=== PATIENT | female | born 1970 | race Caucasian/White ===

== ENCOUNTER 2016-08-03 20:22 | Emergency (ER) | payer BC ==
[2016-08-03] MEDS ORDERED: Acetaminophen 325 MG Tab PO ONE (20:36)
[2016-08-03 20:38] VITALS: BP 157/98
--- NOTE | 2016-08-03 20:40 | EDM.PDOC ---
ED HPI Trauma - General Chief Complaint: Lower Extremity Injury/Pain Stated Complaint: INJURED LEFT ANKLE Time Seen by Provider: 08/03/16 20:34 Source: Reports: Patient History Limitations: Reports: No limitations - History of Present Illness INITIAL COMMENTS - FREE TEXT/NARRATIVE: The patient presents with left ankle pain. She was putting clothes away and she inverted her left ankle and fell. She has no other injuries. She does have a headache but that was not from the fall. She could not walk on it right away. Occurred When: just prior to arrival Occurred Where: home Method of Injury: fall Severity: severe Pain/Injury Location: Reports: upper extremity, left (Ankle) Consciousness: Reports: no loss of consciousness Associated Symptoms: Reports: no other symptoms Allergies/ADRs: Allergies levofloxacin [From Levaquin] Allergy (Verified 08/03/16 20:33) Hallucinations Penicillins Allergy (Verified 08/03/16 20:33) Hives Review of Systems - Review of Systems Review Of Systems: See Below Constitutional: Reports: no symptoms Eyes: Reports: no symptoms Ears: Reports: no symptoms Nose: Reports: no symptoms Mouth/Throat: Reports: no symptoms Respiratory: Reports: No Symptoms Cardiovascular: Reports: no symptoms GI/Abdominal: Reports: No symptoms Genitourinary: Reports: no symptoms Musculoskeletal: Reports: other (Left ankle pain) Trauma Exam - Physical Exam Exam: See Below Exam Limited By: No limitations General Appearance: Reports: alert, no apparent distress Head: Reports: atraumatic, normocephalic Respiratory Exam: Reports: no respiratory distress Extremities: Reports: other (Pain upon palpation to the medial and lateral left ankle with mild edema to the lateral ankle. Good sensation and pulses distally. ) Course - Vital Signs Last Recorded V/S: Last Vital Signs Temp 98.7 F 08/03/16 20:33 Pulse 77 08/03/16 20:33 Resp 16 08/03/16 20:33 BP 157/98 H 08/03/16 20:33 Pulse Ox 98 08/03/16 20:33 - Orders/Labs/Meds Orders: Active Orders 24 hr Category Date Time Status Ankle Min 3V Lt [CR] Stat Exams 08/03/16 20:36 Taken Meds: Medications Discontinued Medications Generic Name Dose Route Start Last Admin Trade Name Freq PRN Reason Stop Dose Admin Acetaminophen 975 mg 08/03/16 20:36 08/03/16 20:42 Tylenol PO 08/03/16 20:37 975 mg NOW ONE Administration - Re-Assessments/Exams Free Text/Narrative Re-Assessment/Exam: 08/03/16 20:59 I gave her some tylenol for the pain. Her x-ray does not show a fracture. She has a sprain. I will give her an jennie-wrap and she has crutches. Departure - Departure Time of Disposition: 21:00 Disposition: Home, Self-Care 01 Condition: good Clinical Impression: Fall Qualifiers: Encounter type: initial encounter Qualified Code(s): W19.XXXA - Unspecified fall, initial encounter Left ankle sprain Qualifiers: Encounter type: initial encounter Involved ligament of ankle: unspecified ligament Qualified Code(s): S93.402A - Sprain of unspecified ligament of left ankle, initial encounter Referrals: Iván Lazaro MD [Primary Care Provider] - 1 Week (If not better) Forms: ED Department Discharge Additional Instructions: Ice your ankle for 15 minutes every other hour while awake for 2 days. Try to elevate your ankle above your heart as much as you can for 2 days. Take tylenol , motrin or aleve for the pain. Wear the jennie wrap for comfort. Use the crutches for a few days. Follow up with Dr Godinez if you are not better in 1 week. - My Orders Last 24 Hours: My Active Orders 08/03/16 20:36 Ankle Min 3V Lt [CR] Stat - Assessment/Plan Last 24 Hours: My Active Orders 08/03/16 20:36 Ankle Min 3V Lt [CR] Stat
--- NOTE | 2016-08-04 09:50 | CR ---
Left ankle: Four views of the left ankle were obtained. Comparison: No previous study. Soft tissue swelling is identified. Plantar spur is seen. Small spur noted at the attachment of the Achilles tendon to the calcaneus. Minimal val of bone noted off the medial malleolus which is felt to be incidental. No acute fracture or other bony abnormality is seen. Impression: 1. Soft tissue swelling and other incidental findings. 2. No acute bony abnormality identified on left ankle exam. Diagnostic code #2
== END 2016-08-03 21:10 | disposition home or self-care (01) ==
LOC: JD.ED 20:22
DX: S93.402A Sprain of unspecified ligament of left ankle, initial encounter (principal); W19.XXXA Unspecified fall, initial encounter; Y92.009 Unspecified place in unspecified non-institutional (private) residence as the place of occurrence of the external cause; Z88.0 Allergy status to penicillin; Z88.1 Allergy status to other antibiotic agents
CPT/HCPCS: 73610; 99283; A9270; 99282

== ENCOUNTER 2017-02-25 11:52 | Observation (INO) | payer BC ==
[2017-02-25] MEDS ORDERED: Sodium Chloride 0.9% 10 ML Syringe FLUSH PRN (12:03)
[2017-02-25] MEDS ORDERED: Sodium Chloride 0.9% 1,000 ML IV ONE ×2 (12:04→13:54)
[2017-02-25] MEDS ORDERED: Ondansetron 4 MG/2 ML SDV IVPUSH ONE (12:04)
--- NOTE | 2017-02-25 12:06 | EDM.PDOC ---
ED HPI GENERAL MEDICAL PROBLEM - General Chief Complaint: Headache Stated Complaint: Altered mental status Time Seen by Provider: 02/25/17 11:55 Source of Information: Reports: Patient, EMS, RN Notes Reviewed History Limitations: Reports: No Limitations - History of Present Illness INITIAL COMMENTS - FREE TEXT/NARRATIVE: 46 year old female presents to the ED via [facility] due to unresponsive episode at home. EMS reports that daughter called 911 because her Mom was reportedly unresponsive. She was breathing and had a pulse at time of dispatch. When EMS arrived, the patient was responsive initially but EMS reports that patient did have an "unresponsive" episode at which time they attempted to sternal rub her with no response. She was breathing with a pulse. There was no reported seizure like activity. On arrival to the ED, the patient is lethargic but alert and appropriately answers questions. She says she awoke with a severe headache around 5am this morning. She went back to sleep for a while. She says the headache started in the back of her head and now is behind her eyes. She has a history of migraines but says she hasn't had migraines in a long time. She is unsure what happened today. She reports a similar episode a couple years ago and said "they don't know what happened." She admits to drinking 1 amado last evening. She otherwise rarely drinks alcohol. She denies drug use. She feels nauseated but denies vomiting, abdominal pain or diarrhea. She denies chest pain, shortness of breath, cough. She denies neck pain or stiffness. She denies fall. She reports history of hypertension but is no longer taking medications because her BP has reportedly improved. She's had a hystorectomy. Her PCP is Dr. Godinez. Occipital Headache Pain Score (Numeric/FACES): 10 - Related Data Allergies Allergy/AdvReac Type Severity Reaction Status Date / Time levofloxacin [From Levaquin] Allergy Hallucinati Verified 02/25/17 11:53 ons Penicillins Allergy Hives Verified 02/25/17 11:53 Home Meds: Home Meds . [No Known Home Meds] 02/25/17 [History] Past Medical History Cardiovascular History: Reports: Hypertension Genitourinary History: Reports: Other (See Below) Other Genitourinary History: bladder sling [employer] History: Reports: Neurological History: Reports: Migraines Psychiatric History: Reports: Depression Endocrine/Metabolic History: Reports: Hypothyroidism - Past Surgical History HEENT Surgical History: Reports: LASIK GI Surgical History: Reports: Appendectomy Social & Family History - Tobacco Use Smoking Status *Q: Never Smoker - Caffeine Use Caffeine Use: Reports: Coffee, Energy Drinks, Soda, Tea - Recreational Drug Use Recreational Drug Use: No ED ROS GENERAL - Review of Systems Review Of Systems: See Below Constitutional: Reports: Malaise, Fatigue. Denies: Fever HEENT: Denies: Throat Pain, Vertigo, Vision Change Respiratory: Reports: No Symptoms. Denies: Shortness of Breath, Cough Cardiovascular: Reports: No Symptoms. Denies: Chest Pain, Edema, Lightheadedness, Palpitations GI/Abdominal: Reports: Nausea. Denies: Abdominal Pain, Diarrhea, Vomiting : Reports: No Symptoms. Denies: Dysuria, Flank Pain, Frequency, Urgency Neurological: Reports: Headache, Syncope (questionable ), Weakness (generalized ), Other (altered mental status, unresponsive episode ). Denies: Confusion, Numbness, Tingling - Physical Exam Exam: See Below Exam Limited By: No Limitations General Appearance: No Apparent Distress, Lethargic Eye Exam: Bilateral Eye: EOMI, Normal Inspection, PERRL Throat/Mouth: Normal Inspection, Normal Oropharynx Head Exam: Atraumatic, Normocephalic Neck: Normal Inspection, Supple, Non-Tender, Full Range of Motion, Other (no nuchal rigidity ). No: Tender Midline Respiratory/Chest: No Respiratory Distress, Lungs Clear, Normal Breath Sounds, No Accessory Muscle Use, Chest Non-Tender Cardiovascular: Normal Peripheral Pulses, Regular Rate, Rhythm, No Edema, No Murmur GI/Abdominal: Normal Bowel Sounds, Soft, Non-Tender, No Distention Neuro Exam (Abbreviated): Other (lethargic but oriented. answers questions appropriately. she is not confused. she moves all extremities and has equal strength bilaterally. No facial assymetry. PERRLA and EOMs intact. ) Back Exam: Normal Inspection, Full Range of Motion. No: CVA Tenderness (L), CVA Tenderness (R) Psychiatric: Flat Affect Skin Exam: Warm, Dry, Intact Course - Vital Signs Last Recorded V/S: Last Vital Signs Temp 97.5 F 02/25/17 12:00 Pulse 79 02/25/17 12:00 Resp 18 02/25/17 12:00 BP 177/102 H 02/25/17 12:00 Pulse Ox 96 02/25/17 12:00 - Orders/Labs/Meds Orders: Active Orders 24 hr Category Date Time Status Cardiac Monitoring [RC] . DIRECTED Care 02/25/17 12:03 Active EKG Documentation Completion [RC] ASDIRECTED Care 02/25/17 12:04 Active Peripheral IV Care [RC] . DIRECTED Care 02/25/17 12:04 Active Sodium Chloride 0.9% [Normal Saline] 1,000 ml Med 02/25/17 12:04 Active IV ONETIME Sodium Chloride 0.9% [Normal Saline] 1,000 ml Med 02/25/17 13:54 Ordered IV ONETIME Sodium Chloride 0.9% [Saline Flush] Med 02/25/17 12:03 Active 10 ml FLUSH ASDIRECTED PRN Peripheral IV Insertion Adult [OM.PC] Stat Oth 02/25/17 12:03 Ordered EKG 12 Lead [EK] Stat Ther 02/25/17 12:03 Ordered Medication Orders Sodium Chloride (Normal Saline) 1,000 mls @ 125 mls/hr IV ONETIME ONE Stop: 02/25/17 20:03 Last Admin: 02/25/17 12:12 Dose: 125 mls/hr Sodium Chloride (Normal Saline) 1,000 mls @ 999 mls/hr IV ONETIME ONE Stop: 02/25/17 14:54 Sodium Chloride (Saline Flush) 10 ml FLUSH ASDIRECTED PRN PRN Reason: Keep Vein Open Last Admin: 02/25/17 12:14 Dose: 10 ml Labs: Laboratory Tests 02/25/17 02/25/17 02/25/17 Range/Units 12:15 12:15 12:54 WBC 10.64 H (3.98-10.04) K/mm3 RBC 5.63 H (3.98-5.22) M/mm3 Hgb 15.5 (11.2-15.7) gm/L Hct 45.1 H (34.1-44.9) % MCV 80.1 (79.4-94.8) fl MCH 27.5 (25.6-32.2) pg MCHC 34.4 (32.2-35.5) g/dl RDW Std Deviation 39.8 (36.4-46.3) fL Plt Count 129 L (182-369) K/mm3 MPV 10.3 (9.4-12.3) fl Neutrophils % (Manual) 86 H (40-60) % Band Neutrophils % 0 (0-10) % Lymphocytes % (Manual) 10 L (20-40) % Atypical Lymphs % 0 % Monocytes % (Manual) 2 (2-10) % Eosinophils % (Manual) 1 (0.7-5.8) % Basophils % (Manual) 1 (0.1-1.2) Platelet Estimate Adequate Plt Morphology Comment See note RBC Morph Comment Normal Sodium (136-145) mEq/L Potassium (3.5-5.1) mEq/L Chloride (98-107) mEq/L Carbon Dioxide (21-32) mEq/L Anion Gap (5-15) BUN (7-18) mg/dL Creatinine (0.55-1.02) mg/dL Est Cr Clr Drug Dosing mL/min Estimated GFR (MDRD) (>60) mL/min BUN/Creatinine Ratio (14-18) Glucose (74-106) mg/dL Calcium (8.5-10.1) mg/dL Magnesium (1.8-2.4) mg/dl Total Bilirubin (0.2-1.0) mg/dL AST (15-37) U/L ALT (14-59) U/L Alkaline Phosphatase (46-116) U/L Total Protein (6.4-8.2) g/dl Albumin (3.4-5.0) g/dl Globulin gm/dL Albumin/Globulin Ratio (1-2) TSH 3rd Generation (0.358-3.74) uIU/mL Urine Color Light yellow (Yellow) Urine Appearance Clear (Clear) Urine pH 7.5 (5.0-8.0) Ur Specific [place] 1.020 (1.005-1.030) Urine Protein 1+ H (Negative) Urine Glucose (UA) Trace H (Negative) Urine Ketones 1+ H (Negative) Urine Occult Blood Trace-intact H (Negative) Urine Nitrite Negative (Negative) Urine Bilirubin Negative (Negative) Urine Urobilinogen 0.2 (0.2-1.0) Ur Leukocyte Esterase Negative (Negative) Urine RBC 0-5 (0-5) /hpf Urine WBC 0-5 (0-5) /hpf Ur Epithelial Cells 5-10 H (0-5) /hpf Amorphous Sediment Few H (NOT SEEN) /hpf Urine Bacteria Few (FEW) /hpf Urine Mucus Not seen (FEW) /hpf Urine Opiates Screen Negative (NEGATIVE) Ur Buprenorphine Scrn Negative (NEGATIVE) Ur Oxycodone Screen Negative (NEGATIVE) Urine Methadone Screen Negative (NEGATIVE) Ur Propoxyphene Screen Negative (NEGATIVE) Ur Barbiturates Screen Negative (NEGATIVE) Ur Tricyclics Screen Negative (NEGATIVE) Ur Phencyclidine Scrn Negative (NEGATIVE) Ur Amphetamine Screen Negative (NEGATIVE) U Methamphetamines Scrn Negative (NEGATIVE) U Benzodiazepines Scrn Negative (NEGATIVE) U Cocaine Metab Screen Negative (NEGATIVE) U Marijuana (THC) Screen Negative (NEGATIVE) Ethyl Alcohol (0.00) gm% 02/25/17 02/25/17 Range/Units 12:54 13:54 WBC (3.98-10.04) K/mm3 RBC (3.98-5.22) M/mm3 Hgb (11.2-15.7) gm/L Hct (34.1-44.9) % MCV (79.4-94.8) fl MCH (25.6-32.2) pg MCHC (32.2-35.5) g/dl RDW Std Deviation (36.4-46.3) fL Plt Count (182-369) K/mm3 MPV (9.4-12.3) fl Neutrophils % (Manual) (40-60) % Band Neutrophils % (0-10) % Lymphocytes % (Manual) (20-40) % Atypical Lymphs % % Monocytes % (Manual) (2-10) % Eosinophils % (Manual) (0.7-5.8) % Basophils % (Manual) (0.1-1.2) Platelet Estimate Plt Morphology Comment RBC Morph Comment Sodium 141 (136-145) mEq/L Potassium 2.9 L (3.5-5.1) mEq/L Chloride 103 (98-107) mEq/L Carbon Dioxide 26 (21-32) mEq/L Anion Gap 14.9 (5-15) BUN 11 (7-18) mg/dL Creatinine 0.8 (0.55-1.02) mg/dL Est Cr Clr Drug Dosing 84.01 mL/min Estimated GFR (MDRD) > 60 (>60) mL/min BUN/Creatinine Ratio 13.8 L (14-18) Glucose 166 H (74-106) mg/dL Calcium 8.9 (8.5-10.1) mg/dL Magnesium 2.1 (1.8-2.4) mg/dl Total Bilirubin 0.8 (0.2-1.0) mg/dL AST 28 (15-37) U/L ALT 36 (14-59) U/L Alkaline Phosphatase 84 (46-116) U/L Total Protein 8.1 (6.4-8.2) g/dl Albumin 4.2 (3.4-5.0) g/dl Globulin 3.9 gm/dL Albumin/Globulin Ratio 1.1 (1-2) TSH 3rd Generation 4.315 H (0.358-3.74) uIU/mL Urine Color (Yellow) Urine Appearance (Clear) Urine pH (5.0-8.0) Ur Specific [place] (1.005-1.030) Urine Protein (Negative) Urine Glucose (UA) (Negative) Urine Ketones (Negative) Urine Occult Blood (Negative) Urine Nitrite (Negative) Urine Bilirubin (Negative) Urine Urobilinogen (0.2-1.0) Ur Leukocyte Esterase (Negative) Urine RBC (0-5) /hpf Urine WBC (0-5) /hpf Ur Epithelial Cells (0-5) /hpf Amorphous Sediment (NOT SEEN) /hpf Urine Bacteria (FEW) /hpf Urine Mucus (FEW) /hpf Urine Opiates Screen (NEGATIVE) Ur Buprenorphine Scrn (NEGATIVE) Ur Oxycodone Screen (NEGATIVE) Urine Methadone Screen (NEGATIVE) Ur Propoxyphene Screen (NEGATIVE) Ur Barbiturates Screen (NEGATIVE) Ur Tricyclics Screen (NEGATIVE) Ur Phencyclidine Scrn (NEGATIVE) Ur Amphetamine Screen (NEGATIVE) U Methamphetamines Scrn (NEGATIVE) U Benzodiazepines Scrn (NEGATIVE) U Cocaine Metab Screen (NEGATIVE) U Marijuana (THC) Screen (NEGATIVE) Ethyl Alcohol 0.00 (0.00) gm% Meds: Medications Generic Name Dose Route Start Last Admin Trade Name Freq PRN Reason Stop Dose Admin Sodium Chloride 1,000 mls @ 125 mls/hr 02/25/17 12:04 02/25/17 12:12 Normal Saline IV 02/25/17 20:03 125 mls/hr ONETIME ONE Administration Sodium Chloride 1,000 mls @ 999 mls/hr 02/25/17 13:54 Normal Saline IV 02/25/17 14:54 ONETIME ONE Sodium Chloride 10 ml 02/25/17 12:03 02/25/17 12:14 Saline Flush FLUSH 10 ml ASDIRECTED PRN Administration Keep Vein Open Discontinued Medications Generic Name Dose Route Start Last Admin Trade Name Jesus PRN Reason Stop Dose Admin Hydromorphone HCl 0.5 mg 02/25/17 13:43 02/25/17 14:00 Dilaudid IVPUSH 02/25/17 13:44 0.5 mg ONETIME ONE Administration Potassium Chloride 10 meq/ 100 mls @ 100 mls/hr 02/25/17 13:44 02/25/17 14:01 Premix IV 02/25/17 14:43 100 mls/hr ONETIME ONE Administration Ondansetron HCl 4 mg 02/25/17 12:04 02/25/17 12:14 Zofran IVPUSH 02/25/17 12:05 4 mg ONETIME ONE Administration - Re-Assessments/Exams Free Text/Narrative Re-Assessment/Exam: CBC is unremarkable. CMP reveals Na 141, K 2.9, anion gap 14.9, glucose 166, kidney and liver function is normal. UA is negative for infection. UDS and ETOH are negative. Head CT obtained and read by Dr. Childs, impression: no acute intracranial abnormality. EKG reveals SR 72 bpm with LVH pattern. No acute ischemic changes. Read by Dr. Lua I reviewed the patient's PMH with her. She was able to pull up her [facility] chart and showed me her problem list. PMH includes hypothyroidism, htn, gerd, migraine headaches, mitral valve regurgitation, and "impaired glucose." The patient takes no medications. However she does admit to taking a weight loss supplements called Xyngular. I feel this may be contributing to her hypokalemia. The patient also now reports muscle cramps in her lower extremities. Her daughter is present at bedside. I asked her to describe what happened today. She said her Mom had periods of unresponsiveness. She said she was awake but would "check out." She did not stop breathing. She did not fall or completely lose consciousness. The daughter describes shaking her Mom to get her attention. The daughter says this has never happened before. 02/25/17 13:55 I suspect the patient's weakness symptoms are related to her hypokalemia. She is very weak to all extremities and is unable to get up without assistance. She has no focal neurologic deficit to indicate that this is a stroke. She is more alert at this time. She is interacting with family. Cerebellar testing is intact on repeat exam. I spoke to Dr. Davison who has accepted the patient. She will be referred for observation for hypokalemia and weakness. We did add a magnesium and TSH level. Departure - Departure Time of Disposition: 14:51 Disposition: Refer to Observation Condition: Fair Clinical Impression: Hypokalemia, Generalized weakness - Discharge Information Referrals: Iván Lazaro MD [Primary Care Provider] - Forms: ED Department Discharge - My Orders Last 24 Hours: My Active Orders 02/25/17 12:03 Cardiac Monitoring [RC] . DIRECTED Sodium Chloride 0.9% [Saline Flush] 10 ml FLUSH ASDIRECTED PRN Peripheral IV Insertion Adult [OM.PC] Stat EKG 12 Lead [EK] Stat 02/25/17 12:04 EKG Documentation Completion [RC] ASDIRECTED Peripheral IV Care [RC] . DIRECTED Sodium Chloride 0.9% [Normal Saline] 1,000 ml IV ONETIME 02/25/17 13:54 Sodium Chloride 0.9% [Normal Saline] 1,000 ml IV ONETIME - Assessment/Plan Last 24 Hours: My Active Orders 02/25/17 12:03 Cardiac Monitoring [RC] . DIRECTED Sodium Chloride 0.9% [Saline Flush] 10 ml FLUSH ASDIRECTED PRN Peripheral IV Insertion Adult [OM.PC] Stat EKG 12 Lead [EK] Stat 02/25/17 12:04 EKG Documentation Completion [RC] ASDIRECTED Peripheral IV Care [RC] . DIRECTED Sodium Chloride 0.9% [Normal Saline] 1,000 ml IV ONETIME 02/25/17 13:54 Sodium Chloride 0.9% [Normal Saline] 1,000 ml IV ONETIME
--- NOTE | 2017-02-25 12:47 | CT ---
Head CT Technique: Multiple axial sections through the brain were obtained. Intravenous contrast was not utilized. Comparison: No previous intracranial imaging. Findings: Ventricles along with basal cisterns and sulci over the convexities appear within normal limits for the patient's age. No abnormal parenchymal densities are seen. No evidence of intracranial hemorrhage. No midline shift or mass effect is seen. Bone window settings were reviewed which shows the visualized sinuses to appear clear. No acute calvarial abnormality is appreciated. Impression: 1. No acute intracranial abnormality is identified on noncontrast head CT study. Diagnostic code #1
[2017-02-25] MEDS ORDERED: HYDROmorphone 0.5 MG/0.5 ML Syringe IVPUSH ONE (13:43)
[2017-02-25] MEDS ORDERED: Potassium Chloride 10 MEQ in Premix Bag 1 BAG IV ONE (13:44)
--- NOTE | 2017-02-25 15:35 | PCM.HP ---
H&P History of Present Illness - General Date of Service: 02/25/17 Source of Information: Patient, Provider History Limitations: Reports: No Limitations - History of Present Illness Initial Comments - Free Text/Narative: 46 year old female who reportedly had transient LOC, this was associated with a headache. The patient had an alcoholic beverage before going to bed. She reports that she rarely drinks. The patient experienced nausea without vomiting ; denies drug use [employer]. There was no apparent cardiac component when another episode was reported by the EMS, the first occurrence was described by her daughter. There has been no CP, SOB, PND, orthopnea; denies /GI changes. Onset of Symptoms: Reports: Sudden Symptom Onset Date: 02/25/17 Symptom Onset Time: 05:00 Duration of Symptoms: Reports: Hour(s):, Getting Worse Location: Reports: Head, Neck, Abdomen Severity: Moderate Improves with: Reports: Medication Worsens with: Reports: None Associated Symptoms: Reports: Headaches, Loss of Appetite, Malaise, Weakness Occipital Headache Pain Score (Numeric/FACES): 10 - Related Data Allergies/Adverse Reactions: Allergies Allergy/AdvReac Type Severity Reaction Status Date / Time levofloxacin [From Levaquin] Allergy Hallucinati Verified 02/25/17 11:53 ons Penicillins Allergy Hives Verified 02/25/17 11:53 Home Medications: Home Meds FLUoxetine HCl [Prozac] 20 mg PO DAILY 02/25/17 [History] Propranolol [Inderal LA] 80 mg PO DAILY 02/25/17 [History] Topiramate 50 mg PO DAILY 02/25/17 [History] Topiramate 100 mg PO DAILY 02/25/17 [History] ZOLMitriptan [Zolmitriptan] 5 mg pe PO Q2H PRN 02/25/17 [History] Past Medical History Cardiovascular History: Reports: Hypertension Other Cardiovascular History: Had taken Redux in the past. She sees provider who routinely checks her mitral valve. 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: Neurological History: Reports: Migraines Psychiatric History: Reports: Depression Endocrine/Metabolic History: Reports: Hypothyroidism - Past Surgical History HEENT Surgical History: Reports: LASIK GI Surgical History: Reports: Appendectomy Social & Family History - Tobacco Use Smoking Status *Q: Never Smoker Second Hand Smoke Exposure: No - Caffeine Use Caffeine Use: Reports: Coffee, Energy Drinks, Soda, Tea - Alcohol Use Date of Last Drink: 02/24/17 Time of Last Drink: 00:00 - Recreational Drug Use Recreational Drug Use: No H&P Review of Systems - Review of Systems: Review Of Systems: See Below General: Reports: Malaise, Fatigue HEENT: Reports: Eye Pain, Headaches Pulmonary: Reports: No Symptoms Cardiovascular: Reports: No Symptoms Gastrointestinal: Reports: Nausea Genitourinary: Reports: No Symptoms Musculoskeletal: Reports: No Symptoms Skin: Reports: No Symptoms Psychiatric: Reports: No Symptoms Neurological: Reports: Dizziness, Headache Hematologic/Lymphatic: Reports: No Symptoms Immunologic: Reports: No Symptoms Exam - Exam Exam: See Below - Vital Signs Vital Signs: Last Vital Signs Temp 36.4 C 02/25/17 12:00 Pulse 79 02/25/17 12:00 Resp 18 02/25/17 12:00 BP 177/102 H 02/25/17 12:00 Pulse Ox 96 02/25/17 12:00 Weight: 90.718 kg - Exam Quality Assessment: DVT Prophylaxis General: Alert, Oriented, Mild Distress HEENT: Conjunctiva Clear, EOMI, Nares Patent, Normal Nasal Septum, Posterior Pharynx Clear, Pupils Equal, Pupils Reactive Neck: Supple, Trachea Midline, Full Range of Motion Lungs: Clear to Auscultation Cardiovascular: Regular Rate, Regular Rhythm GI/Abdominal Exam: Normal Bowel Sounds, Soft, Non-Tender, No Organomegaly, No Distention (Female) Exam: Deferred Rectal (Female) Exam: Deferred Back Exam: Normal Inspection Extremities: Normal Inspection Skin: Warm Neurological: Cranial Nerves Intact, Normal Speech Neuro Extensive - Mental Status: Alert, Oriented x3, Normal Mood/Affect, Normal Cognition, Memory Intact Neuro Extensive - Motor, Sensory, Reflexes: CN II-XII Intact Psychiatric: Alert, Normal Affect, Normal Mood - Patient Data Result Diagrams: 02/25/17 12:54 02/25/17 12:54 *Q Meaningful Use (ADM) - VTE *Q VTE Criteria *Q: - Stroke *Q Stroke Criteria *Q: - AMI *Q AMI Criteria *Q: Problem List Initiated/Reviewed/Updated: Yes Orders Last 24hrs: Medication Orders Sodium Chloride (Normal Saline) 1,000 mls @ 125 mls/hr IV ONETIME ONE Stop: 10/14/17 20:03 Last Admin: 02/25/17 12:12 Dose: 125 mls/hr Sodium Chloride (Saline Flush) 10 ml FLUSH ASDIRECTED PRN PRN Reason: Keep Vein Open Last Admin: 02/25/17 12:14 Dose: 10 ml Assessment/Plan Comment:: Impression: Abnormal electrolyte panel Reportedly episode of syncopal/presyncopal episode Acute cephalgia with history of migraine headaches Discontinuation of medication for HTN, hypothyroidism Recent exposure to weight loss supplement Use of ketogenic diet for weight loss without assistance of medical provider Recent alcoholic beverage, the night before the severe headache. Chronic HTN Hypothyroid ? HLD ? Depression Plan: MS telemetry, observation Correct electrolytes; assess TSH Analgesics Antiemetic Restart home meds Diet consult SW/PT/OT as needed DVT/GI prophylaxis Full Code
[2017-02-25] MEDS ORDERED: Promethazine 12.5 MG in Sodium Chloride 0.9% 50 ML IV PRN (15:54)
[2017-02-25] MEDS ORDERED: HYDROmorphone 0.5 MG/0.5 ML Syringe IVPUSH PRN (16:01)
[2017-02-25] MEDS: Ketorolac 15 MG/ML SDV IVPUSH SCH ×2 (16:55→21:56)
[2017-02-25] MEDS: Ondansetron 4 MG/2 ML SDV IVPUSH SCH (16:56)
[2017-02-25] MEDS ORDERED: ZOLMITRIPTAN 5 MG PO PRN (19:12)
[2017-02-25] MEDS: Sodium Chloride 0.45% with KCl 1,000 ML IV SCH (19:18)
[2017-02-25] MEDS: Potassium Chloride 10% 20 MEQ/15 ML Soln 30 ML UD Cup PO SCH (20:24)
[2017-02-25] MEDS ORDERED: Topiramate 100 MG Tab PO SCH (21:00)
[2017-02-26] MEDS: Ondansetron 4 MG/2 ML SDV IVPUSH SCH ×3 (00:23→15:45)
[2017-02-26] MEDS: Ketorolac 15 MG/ML SDV IVPUSH SCH ×4 (03:31→21:06)
[2017-02-26] MEDS: Sodium Chloride 0.45% with KCl 1,000 ML IV SCH ×3 (03:32→22:39)
[2017-02-26] MEDS: FLUoxetine 20 MG Cap PO SCH (08:21)
[2017-02-26] MEDS: Propranolol 80 MG Cap.ER PO SCH (08:21)
[2017-02-26] MEDS: Potassium Chloride 10% 20 MEQ/15 ML Soln 30 ML UD Cup PO SCH ×2 (08:21→21:09)
[2017-02-26] MEDS ORDERED: TOPIRAMATE 100 MG PO SCH (09:00)
[2017-02-26] MEDS: SUMAtriptan 50 MG Tab PO PRN (10:36)
--- NOTE | 2017-02-26 11:37 | PCM.PN ---
- General Info Date of Service: 02/26/17 Functional Status: Reports: Pain Controlled, Tolerating Diet, Ambulating, Urinating - Review of Systems General: Reports: No Symptoms HEENT: Reports: No Symptoms Pulmonary: Reports: No Symptoms Cardiovascular: Reports: No Symptoms Gastrointestinal: Reports: No Symptoms Genitourinary: Reports: No Symptoms Musculoskeletal: Reports: No Symptoms Skin: Reports: No Symptoms Neurological: Reports: No Symptoms Psychiatric: Reports: No Symptoms - Patient Data Vitals - Most Recent: Last Vital Signs Temp 36.8 C 02/26/17 03:30 Pulse 65 02/26/17 03:30 Resp 12 02/26/17 03:30 BP 132/82 02/26/17 09:00 Pulse Ox 96 02/26/17 03:30 Weight - Most Recent: 92.714 kg I&O - Last 24 Hours: Intake & Output 02/25/17 02/26/17 02/26/17 22:59 06:59 14:59 Intake Total 1723 Output Total 800 Balance 923 Lab Results Last 24 Hours: Laboratory Results - last 24 hr 02/25/17 02/26/17 02/26/17 Range/Units 18:00 05:35 05:35 WBC 6.52 (3.98-10.04) K/mm3 RBC 4.87 (3.98-5.22) M/mm3 Hgb 13.3 (11.2-15.7) gm/L Hct 40.2 (34.1-44.9) % MCV 82.5 (79.4-94.8) fl MCH 27.3 (25.6-32.2) pg MCHC 33.1 (32.2-35.5) g/dl RDW Std Deviation 40.8 (36.4-46.3) fL Plt Count 292 (182-369) K/mm3 MPV 9.7 (9.4-12.3) fl Neut % (Auto) 59.0 (34.0-71.1) % Lymph % (Auto) 30.7 (19.3-51.7) % [place] % (Auto) 8.6 (4.7-12.5) % Eos % (Auto) 1.2 (0.7-5.8) Baso % (Auto) 0.2 (0.1-1.2) % Neut # (Auto) 3.85 (1.56-6.13) K/mm3 Lymph # (Auto) 2.00 (1.18-3.74) K/mm3 Deuel # (Auto) 0.56 H (0.24-0.36) K/mm3 Eos # (Auto) 0.08 (0.04-0.36) K/mm3 Baso # (Auto) 0.01 (0.01-0.08) K/mm3 Sodium 144 (136-145) mEq/L Potassium 3.4 L (3.5-5.1) mEq/L Chloride 108 H (98-107) mEq/L Carbon Dioxide 26 (21-32) mEq/L Anion Gap 13.4 (5-15) BUN 7 (7-18) mg/dL Creatinine 0.7 (0.55-1.02) mg/dL Est Cr Clr Drug Dosing 96.01 mL/min Estimated GFR (MDRD) > 60 (>60) mL/min BUN/Creatinine Ratio 10.0 L (14-18) Glucose 111 H (74-106) mg/dL Calcium 8.0 L (8.5-10.1) mg/dL Magnesium 1.9 2.0 (1.8-2.4) mg/dl Creatine Kinase 48 (26-192) U/L C-Reactive Protein 0.4 (<1.0) mg/dL Triglycerides 101 (<150) mg/dL Cholesterol 186 (<200) mg/dL LDL Cholesterol Direct 120 H* (<100) mg/dL HDL Cholesterol 44.0 (40-59) mg/dL Med Orders - Current: Current Medications Acetaminophen/Butalbital/Caffeine (Fioricet 325-50-40 Mg) 1 tab PO Q6HR PRN PRN Reason: Headache Fluoxetine HCl (Prozac) 20 mg PO DAILY ONEIL Last Admin: 02/26/17 08:21 Dose: 20 mg Hydromorphone HCl (Dilaudid) 0.5 mg IVPUSH Q6H PRN PRN Reason: Pain (moderate 4-6) Promethazine HCl 12.5 mg/ (Sodium Chloride) 50.5 mls @ 100 mls/hr IV Q6H PRN PRN Reason: Nausea/Vomiting Potassium Chloride/Sodium Chloride (1/2 Ns With 20 Meq Kcl) 1,000 mls @ 125 mls /hr IV ASDIRECTED [facility] Last Admin: 02/26/17 03:32 Dose: 125 mls/hr Ketorolac Tromethamine (Toradol) 15 mg IVPUSH Q6H [facility] Last Admin: 02/26/17 10:39 Dose: 15 mg Levothyroxine Sodium (Synthroid) 88 mcg PO ACBREAKFAST [facility] Last Admin: 02/26/17 06:16 Dose: 88 mcg Non-Formulary Medication (Topiramate) 50 mg PO BEDTIME ONEIL Ondansetron HCl (Zofran) 4 mg IVPUSH Q8H [facility] Last Admin: 02/26/17 08:21 Dose: 4 mg Zolmitriptan [ Zolmitriptan] 5 Mg Pe 0 each PO Q2H PRN PRN Reason: Headache Potassium Chloride (Potassium Chloride) 40 meq PO BID [facility] Stop: 02/28/17 09:01 Last Admin: 02/26/17 08:21 Dose: 40 meq Propranolol HCl (Inderal La) 80 mg PO DAILY [facility] Last Admin: 02/26/17 08:21 Dose: 80 mg Sodium Chloride (Saline Flush) 10 ml FLUSH ASDIRECTED PRN PRN Reason: Keep Vein Open Last Admin: 02/25/17 12:14 Dose: 10 ml Sumatriptan Succinate (Imitrex) 25 mg PO Q4H PRN PRN Reason: Headache Last Admin: 02/26/17 10:36 Dose: 25 mg Topiramate (Topamax) 100 mg PO DAILY [facility] Discontinued Medications Hydromorphone HCl (Dilaudid) 0.5 mg IVPUSH ONETIME ONE Stop: 02/25/17 13:44 Last Admin: 02/25/17 14:00 Dose: 0.5 mg Sodium Chloride (Normal Saline) 1,000 mls @ 125 mls/hr IV ONETIME ONE Stop: 02/25/17 20:03 Last Admin: 02/25/17 12:12 Dose: 125 mls/hr Potassium Chloride 10 meq/ (Premix) 100 mls @ 100 mls/hr IV ONETIME ONE Stop: 02/25/17 14:43 Last Admin: 02/25/17 14:01 Dose: 100 mls/hr Sodium Chloride (Normal Saline) 1,000 mls @ 999 mls/hr IV ONETIME ONE Stop: 02/25/17 14:54 Last Admin: 02/25/17 18:59 Dose: Not Given Ondansetron HCl (Zofran) 4 mg IVPUSH ONETIME ONE Stop: 02/25/17 12:05 Last Admin: 02/25/17 12:14 Dose: 4 mg - Exam Quality Assessment: DVT Prophylaxis General: Alert, Oriented, Cooperative, No Acute Distress HEENT: Pupils Equal, Pupils Reactive Neck: Supple, Trachea Midline Lungs: Clear to Auscultation, Normal Respiratory Effort Cardiovascular: Regular Rate, Regular Rhythm GI/Abdominal Exam: Normal Bowel Sounds, Soft, Non-Tender, No Organomegaly, No Distention (Female) Exam: Deferred Back Exam: Normal Inspection Extremities: Normal Inspection, Normal Range of Motion Skin: Warm Neurological: No New Focal Deficit Psy/Mental Status: Alert - Problem List & Annotations (1) Hypertension SNOMED Code(s): 48025588 Code(s): I10 - ESSENTIAL (PRIMARY) HYPERTENSION Status: Acute Current Visit: Yes (2) Hypothyroid SNOMED Code(s): 60956331 Code(s): E03.9 - HYPOTHYROIDISM, UNSPECIFIED Status: Acute Current Visit : Yes (3) Migraine SNOMED Code(s): 10121930 Code(s): G43.909 - MIGRAINE, UNSP, NOT INTRACTABLE, WITHOUT STATUS MIGRAINOSUS Status: Acute Current Visit: Yes (4) Obesity (BMI 30.0-34.9) SNOMED Code(s): 734291284 Code(s): E66.9 - OBESITY, UNSPECIFIED Status: Acute Current Visit: Yes (5) Generalized weakness SNOMED Code(s): 17624503 Code(s): R53.1 - WEAKNESS Status: Acute Current Visit: Yes (6) Hypokalemia SNOMED Code(s): 55878184 Code(s): E87.6 - HYPOKALEMIA Status: Acute Current Visit: Yes - Problem List Review Problem List Initiated/Reviewed/Updated: Yes - My Orders Last 24 Hours: My Active Orders 02/25/17 15:53 Vital Signs [RC] Q4HR Code Status [Resuscitation Status] Routine 02/25/17 15:54 Promethazine [Phenergan] 12.5 mg Sodium Chloride 0.9% [Normal Saline] 50 ml IV Q6H 02/25/17 16:00 Ketorolac [Toradol] 15 mg IVPUSH Q6H Ondansetron [Zofran] 4 mg IVPUSH Q8H 02/25/17 16:01 HYDROmorphone [Dilaudid] 0.5 mg IVPUSH Q6H PRN 02/25/17 16:13 Antiembolic Devices [RC] 10, BERNARD Hose [Antiembolic Hose] [OM.PC] Routine 02/25/17 18:45 Sodium Chloride 0.45% with KCl [1/2 NS with 20 mEq KCl] 1,000 ml IV ASDIRECTED 02/25/17 19:12 Patient's Own Medication [Ptom] 0 each PO Q2H PRN 02/25/17 21:00 Potassium Chloride 40 meq PO BID Topiramate 50 mg PO BEDTIME 02/25/17 Dinner Clear Liquid Diet [DIET] 02/26/17 06:00 Levothyroxine [Synthroid] 88 mcg PO ACBREAKFAST 02/26/17 09:00 FLUoxetine [PROzac] 20 mg PO DAILY Propranolol [Inderal LA] 80 mg PO DAILY Topiramate [Topamax] 100 mg PO DAILY 02/26/17 09:51 SUMAtriptan [Imitrex] 25 mg PO Q4H PRN 02/26/17 09:52 Acetaminophen/Butalbital/Caff [Fioricet 325-50-40 MG] 1 tab PO Q6HR PRN 02/27/17 05:00 BMP [BASIC METABOLIC PANEL,BMP] [CHEM] DAILY CBC WITH AUTO DIFF [HEME] DAILY GLYCOSYLATED HEMOGLOBIN,HGBA1C [CHEM] Routine MAGNESIUM [CHEM] DAILY 02/27/17 09:00 Consult to Dietary [Consult to Orthotic Aide] [CONS] Routine Consult to Ribbon Blocker [CONS] Routine 02/28/17 05:00 BMP [BASIC METABOLIC PANEL,BMP] [CHEM] DAILY CBC WITH AUTO DIFF [HEME] DAILY MAGNESIUM [CHEM] DAILY 03/01/17 05:00 BMP [BASIC METABOLIC PANEL,BMP] [CHEM] DAILY CBC WITH AUTO DIFF [HEME] DAILY MAGNESIUM [CHEM] DAILY - Plan Plan:: Impression: Abnormal electrolyte panel-->resolving Reportedly episode of syncopal/presyncopal episode Acute cephalgia with history of migraine headaches-->improving after Imitrex and Fioricet Discontinuation of medication for HTN, hypothyroidism Recent exposure to weight loss supplement Use of ketogenic diet for weight loss without assistance of medical provider Recent alcoholic beverage, the night before the severe headache. Chronic HTN Hypothyroid-->need clarification about wheter she has stopped all of her meds HLD ? Depression Plan: MS telemetry, observation Correct electrolytes Analgesics Antiemetic Restart home meds Diet consult SW/PT/OT as needed DVT/GI prophylaxis DC 02/27, will need follow up after DC, confirm 02/[address] Godinez Full Code
[2017-02-26] MEDS: Acetaminophen/Butalbital/Caffeine 325-50-40 MG Tab PO PRN (12:01)
[2017-02-27] MEDS: Ondansetron 4 MG/2 ML SDV IVPUSH SCH ×2 (00:58→07:57)
[2017-02-27] MEDS: Acetaminophen/Butalbital/Caffeine 325-50-40 MG Tab PO PRN (01:02)
[2017-02-27] MEDS: SUMAtriptan 50 MG Tab PO PRN (04:18)
[2017-02-27] MEDS: Ketorolac 15 MG/ML SDV IVPUSH SCH ×2 (04:19→11:09)
[2017-02-27] MEDS: Sodium Chloride 0.45% with KCl 1,000 ML IV SCH (06:45)
[2017-02-27] MEDS: FLUoxetine 20 MG Cap PO SCH (08:00)
[2017-02-27] MEDS: Potassium Chloride 10% 20 MEQ/15 ML Soln 30 ML UD Cup PO SCH (08:01)
--- NOTE | 2017-02-27 08:59 | PCM.DCSUM1 ---
<Keyla Olivarez - Last Filed: 02/27/17 11:36> Discharge Summary - Hospital Course Free Text/Narrative:: Shandra is a 46yo female with PMH of HTN, hypothyroidism, GERD, Migraine headaches, s/p hysterectomy who presented to ED via EMS after syncopal episode at home. Her daughter called EMS. She was breathing and had a pulse the entire time according to daughter, no seizure like activity. She had had one amado the night prior and reported having migraine headache. Had not had headache for quite some time prior, many months. She has been taking an over the counter weight loss aid "Xyngular" which is not supervised by her PCP or any other health care provider. She has noted leg cramps at night. ED evaluation was with normal neurologic exam, negative head CT. Normal EKG aside from LVH. Normal CBC, TSH normal at 4.3. She had hypokalemia with a K+ of 2.9, normal magnesium. Hospitalist service is consulted for admission for syncopal espisode and hypokalemia. Course of hospital stay was unremarkable. Potassium was replaced and normalized on day of discharge. She is eating, drinking and ambulatory without any difficulties. THAKUR is resolved. Neurologic exam unremarkable. She will be discharged home today with follow up with PCP, Dr. Godinez within 1-2 days of discharge with recheck of potassium and to discuss further medical weight loss options should she wish to continue with this. - Discharge Data Discharge Date: 02/27/17 (admit date 02/25/17) Discharge Disposition: Home, Self-Care 01 Condition: Good - Discharge Diagnosis/Problem(s) (1) Hypokalemia SNOMED Code(s): 95817264 ICD Code: E87.6 - HYPOKALEMIA Status: Resolved Current Visit: Yes (2) Near syncope SNOMED Code(s): 108386227 ICD Code: R55 - SYNCOPE AND COLLAPSE Status: Resolved Priority: High Current Visit: Yes (3) Medication reaction SNOMED Code(s): 05709711 ICD Code: T88.7XXA - UNSP ADVERSE EFFECT OF DRUG OR MEDICAMENT, INIT ENCNTR Status: Resolved Priority: High Current Visit: Yes (4) Generalized weakness SNOMED Code(s): 54908904 ICD Code: R53.1 - WEAKNESS Status: Resolved Priority: High Current Visit: Yes (5) Hypertension SNOMED Code(s): 44494485 ICD Code: I10 - ESSENTIAL (PRIMARY) HYPERTENSION Status: Chronic Priority : Medium Current Visit: Yes QualifierTitle: Hypertension type: essential hypertension Qualified Code( s): I10 - Essential (primary) hypertension (6) Hypothyroid SNOMED Code(s): 84806784 ICD Code: E03.9 - HYPOTHYROIDISM, UNSPECIFIED Status: Chronic Priority: Medium Current Visit: Yes QualifierTitle: Hypothyroidism type: unspecified Qualified Code(s): E03.9 - Hypothyroidism, unspecified (7) Migraine SNOMED Code(s): 45640148 ICD Code: G43.909 - MIGRAINE, UNSP, NOT INTRACTABLE, WITHOUT STATUS MIGRAINOSUS Status: Chronic Priority: High Current Visit: Yes QualifierTitle: Migraine type: unspecified (8) Obesity (BMI 30.0-34.9) SNOMED Code(s): 725474709 ICD Code: E66.9 - OBESITY, UNSPECIFIED Status: Chronic Priority: High Current Visit: Yes - Patient Summary/Data Operative Procedure(s) Performed: None Complications: None Consults: Consultations 02/27/17 09:00 Consult to Dietary [Consult to Brooch And Bracelet Maker] [CONS] Routine Consult to Tobacco Drummer [CONS] Routine Labs Pending at D/C: None Recommended Follow-up Testing/Procedures: Push fluids Small frequent protein rich snacks and meals throughout the day Follow up with Dr. Godinez tomorrow 02/28/17; recheck potassium at that time Weight loss should be medically supervised; medical weight loss clinics are available; speak to your PCP about this Continue with usual medications for migraines; can use imitrex if needed, no more than 2 tablets in 24 hour period. Planned Operative Procedure(s) after DC: None Hospital Course: As above - Patient Instructions Diet: Usual Diet as Tolerated, Drink 8-10+ Glasses/Day Activity: As Tolerated Showering/Bathing: May Shower Notify Provider of: Fever, Increased Pain, Nausea and/or Vomiting - Discharge Plan Home Medications: Home Meds Aspirin [Adult Low Dose Aspirin EC] 81 mg PO DAILY 02/25/17 [History] FLUoxetine HCl [Prozac] 20 mg PO DAILY 02/25/17 [History] Fluconazole [Diflucan] 150 mg PO DAILY 02/25/17 [History] Levothyroxine Sodium [Levoxyl] 88 mcg PO DAILY 02/25/17 [History] Propranolol [Inderal LA] 80 mg PO DAILY 02/25/17 [History] ZOLMitriptan [Zolmitriptan] 5 mg pe PO Q2H PRN 02/25/17 [History] Potassium Chloride [Klor-Con M20] 40 meq PO BID #6 02/27/17 [Rx] Patient Handouts: Muscle Cramps and Spasms, [id number], Hypokalemia, Near- Syncope, [id number], Recurrent Migraine Headache, [id number], Potassium Content of Foods, Ketogenic Diet, Pediatric Forms: ED Department Discharge Referrals: Iván Lazaro MD [Primary Care Provider] - - Discharge Summary/Plan Comment DC Time >30 min.: Yes (40 min) - General Info Date of Service: 02/27/17 Functional Status: Reports: Pain Controlled, Tolerating Diet, Ambulating, Urinating. Denies: New Symptoms - Review of Systems General: Reports: No Symptoms HEENT: Reports: No Symptoms Pulmonary: Reports: No Symptoms Cardiovascular: Reports: No Symptoms Gastrointestinal: Reports: No Symptoms Genitourinary: Reports: No Symptoms Musculoskeletal: Reports: No Symptoms Skin: Reports: No Symptoms Neurological: Reports: No Symptoms Psychiatric: Reports: No Symptoms - Patient Data Vitals - Most Recent: Last Vital Signs Temp 97.3 F 02/27/17 00:26 Pulse 67 02/27/17 00:26 Resp 14 02/27/17 00:26 BP 110/64 02/27/17 00:26 Pulse Ox 97 02/27/17 00:26 Weight - Most Recent: 93.032 kg I&O - Last 24 hours: Intake & Output 02/26/17 02/27/17 02/27/17 22:59 06:59 14:59 Intake Total 2162 2054 Output Total 3500 1850 Balance -1338 204 Lab Results - Last 24 hrs: Laboratory Results - last 24 hr 02/27/17 02/27/17 02/27/17 Range/Units 05:50 05:50 05:50 WBC 5.25 (3.98-10.04) K/mm3 RBC 4.87 (3.98-5.22) M/mm3 Hgb 13.4 (11.2-15.7) gm/L Hct 40.8 (34.1-44.9) % MCV 83.8 (79.4-94.8) fl MCH 27.5 (25.6-32.2) pg MCHC 32.8 (32.2-35.5) g/dl RDW Std Deviation 42.8 (36.4-46.3) fL Plt Count 280 (182-369) K/mm3 MPV 9.6 (9.4-12.3) fl Neut % (Auto) 55.0 (34.0-71.1) % Lymph % (Auto) 35.6 (19.3-51.7) % [place] % (Auto) 6.7 (4.7-12.5) % Eos % (Auto) 2.3 (0.7-5.8) Baso % (Auto) 0.2 (0.1-1.2) % Neut # (Auto) 2.89 (1.56-6.13) K/mm3 Lymph # (Auto) 1.87 (1.18-3.74) K/mm3 [place] # (Auto) 0.35 (0.24-0.36) K/mm3 Eos # (Auto) 0.12 (0.04-0.36) K/mm3 Baso # (Auto) 0.01 (0.01-0.08) K/mm3 Sodium 144 (136-145) mEq/L Potassium 4.0 (3.5-5.1) mEq/L Chloride 110 H (98-107) mEq/L Carbon Dioxide 25 (21-32) mEq/L Anion Gap 13.0 (5-15) BUN 8 (7-18) mg/dL Creatinine 0.8 (0.55-1.02) mg/dL Est Cr Clr Drug Dosing 84.01 mL/min Estimated GFR (MDRD) > 60 (>60) mL/min BUN/Creatinine Ratio 10.0 L (14-18) Glucose 115 H (74-106) mg/dL Hemoglobin A1c 5.70 (4.50-6.20) % Calcium 8.2 L (8.5-10.1) mg/dL Magnesium 2.1 (1.8-2.4) mg/dl Med Orders - Current: Current Medications Acetaminophen/Butalbital/Caffeine (Fioricet 325-50-40 Mg) 1 tab PO Q6HR PRN PRN Reason: Headache Last Admin: 02/27/17 01:02 Dose: 1 tab Fluoxetine HCl (Prozac) 20 mg PO DAILY [facility] Last Admin: 02/27/17 08:00 Dose: 20 mg Hydromorphone HCl (Dilaudid) 0.5 mg IVPUSH Q6H PRN PRN Reason: Pain (moderate 4-6) Promethazine HCl 12.5 mg/ (Sodium Chloride) 50.5 mls @ 100 mls/hr IV Q6H PRN PRN Reason: Nausea/Vomiting Potassium Chloride/Sodium Chloride (1/2 Ns With 20 Meq Kcl) 1,000 mls @ 125 mls /hr IV ASDIRECTED [facility] Last Admin: 02/27/17 06:45 Dose: 125 mls/hr Ketorolac Tromethamine (Toradol) 15 mg IVPUSH Q6H [facility] Last Admin: 02/27/17 04:19 Dose: 15 mg Levothyroxine Sodium (Synthroid) 88 mcg PO ACBREAKFAST [facility] Last Admin: 02/27/17 06:44 Dose: 88 mcg Ondansetron HCl (Zofran) 4 mg IVPUSH Q8H [facility] Last Admin: 02/27/17 07:57 Dose: Not Given Zolmitriptan [ Zolmitriptan] 5 Mg Pe 0 each PO Q2H PRN PRN Reason: Headache Potassium Chloride (Potassium Chloride) 40 meq PO BID [facility] Stop: 02/28/17 09:01 Last Admin: 02/27/17 08:01 Dose: 40 meq Propranolol HCl (Inderal La) 80 mg PO DAILY [facility] Last Admin: 02/26/17 08:21 Dose: 80 mg Sodium Chloride (Saline Flush) 10 ml FLUSH ASDIRECTED PRN PRN Reason: Keep Vein Open Last Admin: 02/25/17 12:14 Dose: 10 ml Sumatriptan Succinate (Imitrex) 25 mg PO Q4H PRN PRN Reason: Headache Last Admin: 02/27/17 04:18 Dose: 25 mg Topiramate (Topamax) 0 mg PO DAILY [facility] Topiramate (Topamax) 0 mg PO BEDTIME [facility] Discontinued Medications Hydromorphone HCl (Dilaudid) 0.5 mg IVPUSH ONETIME ONE Stop: 02/25/17 13:44 Last Admin: 02/25/17 14:00 Dose: 0.5 mg Sodium Chloride (Normal Saline) 1,000 mls @ 125 mls/hr IV ONETIME ONE Stop: 02/25/17 20:03 Last Admin: 02/25/17 12:12 Dose: 125 mls/hr Potassium Chloride 10 meq/ (Premix) 100 mls @ 100 mls/hr IV ONETIME ONE Stop: 02/25/17 14:43 Last Admin: 02/25/17 14:01 Dose: 100 mls/hr Sodium Chloride (Normal Saline) 1,000 mls @ 999 mls/hr IV ONETIME ONE Stop: 02/25/17 14:54 Last Admin: 02/25/17 18:59 Dose: Not Given Ondansetron HCl (Zofran) 4 mg IVPUSH ONETIME ONE Stop: 02/25/17 12:05 Last Admin: 02/25/17 12:14 Dose: 4 mg - Exam Quality Assessment: Reports: DVT Prophylaxis General: Reports: Alert, Oriented, Cooperative, No Acute Distress HEENT: Reports: Pupils Equal, EOMI, Mucous Membr. Moist/[place] Neck: Reports: Supple Lungs: Reports: Clear to Auscultation, Normal Respiratory Effort Cardiovascular: Reports: Regular Rate, Regular Rhythm GI/Abdominal Exam: Normal Bowel Sounds, Soft, Non-Tender (Female) Exam: Deferred Rectal (Female) Exam: Deferred Extremities: Normal Inspection, No Pedal Edema, Normal Capillary Refill Neurological: Reports: No New Focal Deficit Psy/Mental Status: Reports: Alert, Normal Affect, Normal Mood *Q Meaningful Use (DIS) - VTE *Q VTE Criteria *Q: - Stroke *Q Stroke Criteria *Q: - AMI *Q AMI Criteria *Q: <Rebeca Davison - Last Filed: 02/27/17 14:06> Discharge Summary - Hospital Course Free Text/Narrative:: Patient has declined to continue any medications until seen by PCP. She seemed unaware of her overall medical needs. Dietary spent time with her for instruction and education. Her hypothyroidism can not be cured with her current choice of diet and this was explained in detail. - Discharge Diagnosis/Problem(s) (1) Hypertension SNOMED Code(s): 96432522 ICD Code: I10 - ESSENTIAL (PRIMARY) HYPERTENSION Status: Chronic Priority : Medium Current Visit: Yes Qualifiers: Hypertension type: essential hypertension Qualified Code(s): I10 - Essential (primary) hypertension (2) Hypothyroid SNOMED Code(s): 05872739 ICD Code: E03.9 - HYPOTHYROIDISM, UNSPECIFIED Status: Chronic Priority: Medium Current Visit: Yes Qualifiers: Hypothyroidism type: unspecified Qualified Code(s): E03.9 - Hypothyroidism , unspecified (3) Migraine SNOMED Code(s): 24230893 ICD Code: G43.909 - MIGRAINE, UNSP, NOT INTRACTABLE, WITHOUT STATUS MIGRAINOSUS Status: Chronic Priority: High Current Visit: Yes Qualifiers: Migraine type: unspecified (4) Obesity (BMI 30.0-34.9) SNOMED Code(s): 673578802 ICD Code: E66.9 - OBESITY, UNSPECIFIED Status: Chronic Priority: High Current Visit: Yes (5) Generalized weakness SNOMED Code(s): 60154812 ICD Code: R53.1 - WEAKNESS Status: Resolved Priority: High Current Visit: Yes (6) Hypokalemia SNOMED Code(s): 14991081 ICD Code: E87.6 - HYPOKALEMIA Status: Resolved Current Visit: Yes - Patient Summary/Data Consults: Consultations 02/27/17 09:00 Consult to Dietary [Consult to Brooch And Bracelet Maker] [CONS] Routine Consult to Tobacco Drummer [CONS] Routine - Patient Data Vitals - Most Recent: Last Vital Signs Temp 36.8 C 02/27/17 12:48 Pulse 58 L 02/27/17 12:48 Resp 14 02/27/17 12:48 BP 140/93 H 02/27/17 12:48 Pulse Ox 96 02/27/17 12:48 I&O - Last 24 hours: Intake & Output 02/26/17 02/27/17 02/27/17 22:59 06:59 14:59 Intake Total 2162 2054 300 Output Total 3500 1850 Balance -1338 204 300 Lab Results - Last 24 hrs: Laboratory Results - last 24 hr 02/27/17 02/27/17 02/27/17 Range/Units 05:50 05:50 05:50 WBC 5.25 (3.98-10.04) K/mm3 RBC 4.87 (3.98-5.22) M/mm3 Hgb 13.4 (11.2-15.7) gm/L Hct 40.8 (34.1-44.9) % MCV 83.8 (79.4-94.8) fl MCH 27.5 (25.6-32.2) pg MCHC 32.8 (32.2-35.5) g/dl RDW Std Deviation 42.8 (36.4-46.3) fL Plt Count 280 (182-369) K/mm3 MPV 9.6 (9.4-12.3) fl Neut % (Auto) 55.0 (34.0-71.1) % Lymph % (Auto) 35.6 (19.3-51.7) % [place] % (Auto) 6.7 (4.7-12.5) % Eos % (Auto) 2.3 (0.7-5.8) Baso % (Auto) 0.2 (0.1-1.2) % Neut # (Auto) 2.89 (1.56-6.13) K/mm3 Lymph # (Auto) 1.87 (1.18-3.74) K/mm3 [place] # (Auto) 0.35 (0.24-0.36) K/mm3 Eos # (Auto) 0.12 (0.04-0.36) K/mm3 Baso # (Auto) 0.01 (0.01-0.08) K/mm3 Sodium 144 (136-145) mEq/L Potassium 4.0 (3.5-5.1) mEq/L Chloride 110 H (98-107) mEq/L Carbon Dioxide 25 (21-32) mEq/L Anion Gap 13.0 (5-15) BUN 8 (7-18) mg/dL Creatinine 0.8 (0.55-1.02) mg/dL Est Cr Clr Drug Dosing 84.01 mL/min Estimated GFR (MDRD) > 60 (>60) mL/min BUN/Creatinine Ratio 10.0 L (14-18) Glucose 115 H (74-106) mg/dL Hemoglobin A1c 5.70 (4.50-6.20) % Calcium 8.2 L (8.5-10.1) mg/dL Magnesium 2.1 (1.8-2.4) mg/dl Med Orders - Current: Current Medications Acetaminophen/Butalbital/Caffeine (Fioricet 325-50-40 Mg) 1 tab PO Q6HR PRN PRN Reason: Headache Last Admin: 02/27/17 01:02 Dose: 1 tab Fluoxetine HCl (Prozac) 20 mg PO DAILY [facility] Last Admin: 02/27/17 08:00 Dose: 20 mg Hydromorphone HCl (Dilaudid) 0.5 mg IVPUSH Q6H PRN PRN Reason: Pain (moderate 4-6) Promethazine HCl 12.5 mg/ (Sodium Chloride) 50.5 mls @ 100 mls/hr IV Q6H PRN PRN Reason: Nausea/Vomiting Potassium Chloride/Sodium Chloride (1/2 Ns With 20 Meq Kcl) 1,000 mls @ 125 mls /hr IV ASDIRECTED [facility] Last Admin: 02/27/17 06:45 Dose: 125 mls/hr Levothyroxine Sodium (Synthroid) 88 mcg PO ACBREAKFAST [facility] Last Admin: 02/27/17 06:44 Dose: 88 mcg Ondansetron HCl (Zofran) 4 mg IVPUSH Q8H [facility] Last Admin: 02/27/17 07:57 Dose: Not Given Zolmitriptan [ Zolmitriptan] 5 Mg Pe 0 each PO Q2H PRN PRN Reason: Headache Potassium Chloride (Potassium Chloride) 40 meq PO BID [facility] Stop: 02/28/17 09:01 Last Admin: 02/27/17 08:01 Dose: 40 meq Propranolol HCl (Inderal La) 80 mg PO DAILY [facility] Last Admin: 02/27/17 09:51 Dose: Not Given Sodium Chloride (Saline Flush) 10 ml FLUSH ASDIRECTED PRN PRN Reason: Keep Vein Open Last Admin: 02/25/17 12:14 Dose: 10 ml Sumatriptan Succinate (Imitrex) 25 mg PO Q4H PRN PRN Reason: Headache Last Admin: 02/27/17 04:18 Dose: 25 mg Topiramate (Topamax) 0 mg PO DAILY [facility] Last Admin: 02/27/17 09:51 Dose: Not Given Topiramate (Topamax) 0 mg PO BEDTIME [facility] Discontinued Medications Hydromorphone HCl (Dilaudid) 0.5 mg IVPUSH ONETIME ONE Stop: 02/25/17 13:44 Last Admin: 02/25/17 14:00 Dose: 0.5 mg Sodium Chloride (Normal Saline) 1,000 mls @ 125 mls/hr IV ONETIME ONE Stop: 02/25/17 20:03 Last Admin: 02/25/17 12:12 Dose: 125 mls/hr Potassium Chloride 10 meq/ (Premix) 100 mls @ 100 mls/hr IV ONETIME ONE Stop: 02/25/17 14:43 Last Admin: 02/25/17 14:01 Dose: 100 mls/hr Sodium Chloride (Normal Saline) 1,000 mls @ 999 mls/hr IV ONETIME ONE Stop: 02/25/17 14:54 Last Admin: 02/25/17 18:59 Dose: Not Given Ketorolac Tromethamine (Toradol) 15 mg IVPUSH Q6H [facility] Last Admin: 02/27/17 11:09 Dose: Not Given Ondansetron HCl (Zofran) 4 mg IVPUSH ONETIME ONE Stop: 02/25/17 12:05 Last Admin: 02/25/17 12:14 Dose: 4 mg *Q Meaningful Use (DIS) - VTE *Q VTE Criteria *Q: - Stroke *Q Stroke Criteria *Q: - AMI *Q AMI Criteria *Q:
[2017-02-27] MEDS: Propranolol 80 MG Cap.ER PO SCH (09:51)
[2017-02-27 13:00] VITALS: BP 140/93
== END 2017-02-27 16:20 | disposition home or self-care (01) ==
LOC: JD.ED 11:52 → JD.MS 15:11 → INTOOBSV 15:11
PROVIDERS: ADMIT Internal Medicine Cardiovascular Disease; ATTEND Internal Medicine Cardiovascular Disease
DX: R55 Syncope and collapse (principal); E87.6 Hypokalemia; R53.1 Weakness; I10 Essential (primary) hypertension; E03.9 Hypothyroidism, unspecified; G43.909 Migraine, unspecified, not intractable, without status migrainosus; E66.9 Obesity, unspecified; F32.9 Major depressive disorder, single episode, unspecified; Z79.899 Other long term (current) drug therapy; Z88.0 Allergy status to penicillin; Z88.1 Allergy status to other antibiotic agents; Z90.49 Acquired absence of other specified parts of digestive tract; Z98.890 Other specified postprocedural states
CPT/HCPCS: 36415; 70450; 80048; 80053; 80061; 80306; 81001; 82550; 83036; 83735; 84443; 85025; 86140; 93005; 96361; 96365; 96375; 96376; 99285; A9270; G0378; G0480; J1170; J1885; J2405; J3480; J7040; J7050

== ENCOUNTER 2019-05-21 17:03 | Observation (INO) | payer BC ==
[2019-05-21] MEDS ORDERED: Ondansetron 4 MG/2 ML SDV IVPUSH ONE ×2 (17:38→20:31)
[2019-05-21] MEDS ORDERED: Sodium Chloride 0.9% 1,000 ML IV STA (17:38)
[2019-05-21] MEDS ORDERED: Sodium Chloride 0.9% 10 ML Syringe FLUSH PRN (17:38)
[2019-05-21] MEDS ORDERED: HYDROmorphone 1 MG/ML Syringe IVPUSH ONE (17:41)
[2019-05-21] MEDS ORDERED: Iopamidol 612 MG/ML 100 ML Bottle IVPUSH ONE (17:46)
[2019-05-21] MEDS ORDERED: Diatrizoate Meglumine/Diatrizoate Sodium 37% 120 ML Bottle PO ONE (17:46)
--- NOTE | 2019-05-21 17:50 | EDM.PDOC ---
<Debbie Lara - Last Filed: 05/21/19 18:04> ED HPI GENERAL MEDICAL PROBLEM - General Chief Complaint: General Stated Complaint: SOB/WEAK/CONFUSED Time Seen by Provider: 05/21/19 17:16 Source of Information: Reports: Patient, Family History Limitations: Reports: No Limitations - History of Present Illness INITIAL COMMENTS - FREE TEXT/NARRATIVE: 49-year-old female presents with weakness, confusion, crampy abdominal pain, nausea, and vomiting. Symptoms started this morning and have worsened throughout the afternoon. Her daughter found her at home after work in the bathroom hunched over the garbage can vomiting. Her daughter states she was disoriented and confused. Her children were concerned because she has had a difficult time staying awake. The patient notes that these same symptoms occurred previously when her potassium was low, of which she was hospitalized for 3 days. Since coming to the ED, she notes that she now has diarrhea and has noticed palpitations. Her medical history includes hypertension and hypothyroidism. She is taking lisinopril, hydrochlorothiazide, amlodipine, levothyroxine, and a daily potassium supplement. She did take her medications today. Onset: Today Location: Reports: Abdomen Quality: Reports: Other (crampy) Severity: Mild Associated Symptoms: Reports: Confusion, Headaches, Nausea/Vomiting, Weakness, Other (thirst, chills) Upper Abdominal Pain Score (Numeric/FACES): 4 - Related Data Allergies Allergy/AdvReac Type Severity Reaction Status Date / Time levofloxacin [From Levaquin] Allergy Hallucinati Verified 05/21/19 17:13 ons Penicillins Allergy Hives Verified 05/21/19 17:13 Home Meds: Home Meds Levothyroxine Sodium [Levoxyl] 88 mcg PO DAILY 02/25/17 [History] Potassium Chloride [Klor-Con M20] 40 meq PO BID #6 02/27/17 [Rx] Lisinopril [Zestril] 20 mg PO DAILY 05/21/19 [History] amLODIPine [Norvasc] 10 mg PO DAILY 05/21/19 [History] hydroCHLOROthiazide [Hydrochlorothiazide] 25 mg PO DAILY 05/21/19 [History] Past Medical History Cardiovascular History: Reports: Hypertension Other Cardiovascular History: Had taken Redux in the past. She sees provider who routinely checks her mitral valve. Gastrointestinal History: Reports: None Genitourinary History: Reports: Other (See Below) Other Genitourinary History: bladder sling [employer] History: Reports: Neurological History: Reports: Migraines Psychiatric History: Reports: Depression Endocrine/Metabolic History: Reports: Hypothyroidism Other Endocrine/Metabolic History: Pt. takes levothyroxine 88mcg which she stated she took a month ago - Infectious Disease History Infectious Disease History: Reports: Chicken Pox - Past Surgical History HEENT Surgical History: Reports: LASIK GI Surgical History: Reports: Appendectomy Musculoskeletal Surgical History: Reports: Other (See Below) Other Musculoskeletal Surgeries/Procedures:: cyst removed from spine mar 2019 Social & Family History - Family History HEENT: Reports: None Cardiac: Reports: Hypertension, Other (See Below) Other Cardiac Family History: Pt. stated that, "my mother had heart and B/P problems, low B/P I think". mother had rheumatic fever. Father has HTN OBGYN: Reports: Musculoskeletal: Reports: Back pain, Chronic Other Musculoskeletal Family History: Mother Neurological: Reports: Dementia, TIA Other Neurological Family History: Mother had stroke at age 26. Father has dementia and TIA Psychiatric: Reports: Depression Endocrine/Metabolic: Reports: Diabetes, type II, Hypothyroidism Dermatologic: Reports: None Oncologic: Reports: Breast, Renal, Skin Other Oncologic Family History: Skin and breast cancer - sister. "mother had tumor on kidney" - Tobacco Use Smoking Status *Q: Never Smoker - Caffeine Use Caffeine Use: Reports: Soda - Recreational Drug Use Recreational Drug Use: No ED ROS GENERAL - Review of Systems Review Of Systems: See Below Constitutional: Reports: Chills, Weakness. Denies: Fever HEENT: Reports: No Symptoms Respiratory: Reports: Shortness of Breath (stated she was SOB to the nurse but not to the provider) Cardiovascular: Reports: Blood Pressure Problem, Palpitations (palpitations since arriving to ED) Endocrine: Reports: No Symptoms GI/Abdominal: Reports: Abdominal Pain (cramping ), Diarrhea, Nausea, Vomiting. Denies: Bloody Stool, Hematemesis : Reports: No Symptoms Musculoskeletal: Reports: Other (weakness in all extremities) Skin: Reports: No Symptoms Neurological: Reports: Confusion, Headache Psychiatric: Reports: No Symptoms Hematologic/Lymphatic: Reports: No Symptoms ED EXAM, GENERAL - Physical Exam Exam: See Below Exam Limited By: No Limitations General Appearance: No Apparent Distress, Lethargic Eye Exam: Bilateral Eye: EOMI, Normal Inspection, PERRL Ears: Hearing Grossly Normal Respiratory/Chest: No Respiratory Distress, Lungs Clear, Normal Breath Sounds, No Accessory Muscle Use, Chest Non-Tender Cardiovascular: Normal Peripheral Pulses, Regular Rate, Rhythm, No Murmur GI/Abdominal: Normal Bowel Sounds, Soft, No Organomegaly, No Distention, No Mass , Tender (generalized ) Neurological: Oriented, Slow to Respond Psychiatric: Normal Affect, Normal Mood Skin Exam: Warm, Dry, Intact, Normal Color, No Rash Course - Vital Signs Last Recorded V/S: Last Vital Signs Temp 36.8 C 05/21/19 17:09 Pulse 118 H 05/21/19 17:09 Resp 18 05/21/19 17:09 BP 152/90 H 05/21/19 17:09 Pulse Ox 100 05/21/19 17:09 - Orders/Labs/Meds Orders: Active Orders 24 hr Category Date Time Status Peripheral IV Care [RC] . DIRECTED Care 05/21/19 17:39 Active Potassium Chloride [KCl 10 MEQ in Water 100 ML] 10 meq Med 05/21/19 18:45 Active Premix Bag 1 bag IV ASDIRECTED Sodium Chloride 0.9% [Saline Flush] Med 05/21/19 17:38 Active 10 ml FLUSH ASDIRECTED PRN ED Antiemetic Medication Reflex [OM.PC] Stat Oth 05/21/19 17:39 Ordered Peripheral IV Insertion Adult [OM.PC] Stat Oth 05/21/19 17:38 Ordered Medication Orders Potassium Chloride 10 meq/ (Premix) 100 mls @ 100 mls/hr IV ASDIRECTED ONEIL Last Admin: 05/21/19 18:54 Dose: 100 mls/hr Sodium Chloride (Saline Flush) 10 ml FLUSH ASDIRECTED PRN PRN Reason: Keep Vein Open Last Admin: 05/21/19 19:54 Dose: 10 ml Labs: Laboratory Tests 05/21/19 05/21/19 05/21/19 Range/Units 17:45 17:45 17:45 WBC 8.44 (3.98-10.04) K/mm3 RBC 4.66 (3.98-5.22) M/mm3 Hgb 13.5 (11.2-15.7) gm/dl Hct 37.9 (34.1-44.9) % MCV 81.3 (79.4-94.8) fl MCH 29.0 (25.6-32.2) pg MCHC 35.6 H (32.2-35.5) g/dl RDW Std Deviation 37.7 (36.4-46.3) fL Plt Count 337 (182-369) K/mm3 MPV 9.1 L (9.4-12.3) fl Neut % (Auto) 83.4 H (34.0-71.1) % Lymph % (Auto) 11.7 L (19.3-51.7) % [place] % (Auto) 4.6 L (4.7-12.5) % Eos % (Auto) 0.1 L (0.7-5.8) Baso % (Auto) 0.2 (0.1-1.2) % Neut # (Auto) 7.03 H (1.56-6.13) K/mm3 Lymph # (Auto) 0.99 L (1.18-3.74) K/mm3 [place] # (Auto) 0.39 H (0.24-0.36) K/mm3 Eos # (Auto) 0.01 L (0.04-0.36) K/mm3 Baso # (Auto) 0.02 (0.01-0.08) K/mm3 D-Dimer, Quantitative (0.19-0.50) mg/L Puncture Site ABG pH (7.35-7.45) ABG pCO2 (35.0-45.0) mmHg ABG pO2 (80.0-100.0) mmHg ABG HCO3 (22.0-26.0) meq/L ABG O2 Saturation (96.0-97.0) % ABG Base Excess (-2-2.0) Antonio Test A-a Gradient mmHg O2 Delivery Device Oxygen Flow Rate FiO2 (21.00-100.00) % Sodium 134 L D (136-145) mEq/L Potassium 2.3 L* D (3.5-5.1) mEq/L Chloride 92 L D (98-107) mEq/L Carbon Dioxide 25 (21-32) mEq/L Anion Gap 19.3 H (5-15) BUN 11 (7-18) mg/dL Creatinine 0.8 (0.55-1.02) mg/dL Est Cr Clr Drug Dosing 81.38 mL/min Estimated GFR (MDRD) > 60 (>60) mL/min BUN/Creatinine Ratio 13.8 L (14-18) Glucose 196 H (74-106) mg/dL Calcium 9.9 D (8.5-10.1) mg/dL Magnesium 1.7 L (1.8-2.4) mg/dl Total Bilirubin 0.9 (0.2-1.0) mg/dL AST 18 (15-37) U/L ALT 25 (14-59) U/L Alkaline Phosphatase 70 (46-116) U/L Total Protein 8.1 (6.4-8.2) g/dl Albumin 4.6 (3.4-5.0) g/dl Globulin 3.5 gm/dL Albumin/Globulin Ratio 1.3 (1-2) Lipase 67 L (73-393) U/L TSH 3rd Generation (0.358-3.74) uIU/mL HCG, Qual Negative (NEGATIVE) Urine Color (Yellow) Urine Appearance (Clear) Urine pH (5.0-8.0) Ur Specific [place] (1.005-1.030) Urine Protein (Negative) Urine Glucose (UA) (Negative) Urine Ketones (Negative) Urine Occult Blood (Negative) Urine Nitrite (Negative) Urine Bilirubin (Negative) Urine Urobilinogen (0.2-1.0) Ur Leukocyte Esterase (Negative) Urine RBC (0-5) /hpf Urine WBC (0-5) /hpf Ur Squamous Epith Cells (0-5) /hpf Urine Bacteria (FEW) /hpf Urine Mucus (FEW) /hpf Urine Opiates Screen (TYSMYG=617) Ur Buprenorphine Scrn (CUTOFF=10) Ur Oxycodone Screen (SLF7XG=698) Urine Methadone Screen (KQDROA=976) Ur Propoxyphene Screen (VZMHIG=367) Ur Barbiturates Screen (HOSGMT=725) Ur Tricyclics Screen (KLOAVF=198) Ur Phencyclidine Scrn (CUTOFF=25) Ur Amphetamine Screen (VTDRPX=708) U Methamphetamines Scrn (LKWNYW=005) U Benzodiazepines Scrn (XJGMBC=485) U Cocaine Metab Screen (UXTVDT=070) U Marijuana (THC) Screen (CUTOFF=50) Ethyl Alcohol (0.00) gm% 05/21/19 05/21/19 05/21/19 Range/Units 17:45 17:45 18:35 WBC (3.98-10.04) K/mm3 RBC (3.98-5.22) M/mm3 Hgb (11.2-15.7) gm/dl Hct (34.1-44.9) % MCV (79.4-94.8) fl MCH (25.6-32.2) pg MCHC (32.2-35.5) g/dl RDW Std Deviation (36.4-46.3) fL Plt Count (182-369) K/mm3 MPV (9.4-12.3) fl Neut % (Auto) (34.0-71.1) % Lymph % (Auto) (19.3-51.7) % [place] % (Auto) (4.7-12.5) % Eos % (Auto) (0.7-5.8) Baso % (Auto) (0.1-1.2) % Neut # (Auto) (1.56-6.13) K/mm3 Lymph # (Auto) (1.18-3.74) K/mm3 [place] # (Auto) (0.24-0.36) K/mm3 Eos # (Auto) (0.04-0.36) K/mm3 Baso # (Auto) (0.01-0.08) K/mm3 D-Dimer, Quantitative 0.30 (0.19-0.50) mg/L Puncture Site ABG pH (7.35-7.45) ABG pCO2 (35.0-45.0) mmHg ABG pO2 (80.0-100.0) mmHg ABG HCO3 (22.0-26.0) meq/L ABG O2 Saturation (96.0-97.0) % ABG Base Excess (-2-2.0) Antonio Test A-a Gradient mmHg O2 Delivery Device Oxygen Flow Rate FiO2 (21.00-100.00) % Sodium (136-145) mEq/L Potassium (3.5-5.1) mEq/L Chloride (98-107) mEq/L Carbon Dioxide (21-32) mEq/L Anion Gap (5-15) BUN (7-18) mg/dL Creatinine (0.55-1.02) mg/dL Est Cr Clr Drug Dosing mL/min Estimated GFR (MDRD) (>60) mL/min BUN/Creatinine Ratio (14-18) Glucose (74-106) mg/dL Calcium (8.5-10.1) mg/dL Magnesium (1.8-2.4) mg/dl Total Bilirubin (0.2-1.0) mg/dL AST (15-37) U/L ALT (14-59) U/L Alkaline Phosphatase (46-116) U/L Total Protein (6.4-8.2) g/dl Albumin (3.4-5.0) g/dl Globulin gm/dL Albumin/Globulin Ratio (1-2) Lipase (73-393) U/L TSH 3rd Generation 0.489 (0.358-3.74) uIU/mL HCG, Qual (NEGATIVE) Urine Color Light yellow (Yellow) Urine Appearance Clear (Clear) Urine pH 7.5 (5.0-8.0) Ur Specific [place] 1.025 (1.005-1.030) Urine Protein Negative (Negative) Urine Glucose (UA) 1+ H (Negative) Urine Ketones 3+ H (Negative) Urine Occult Blood Trace-intact H (Negative) Urine Nitrite Negative (Negative) Urine Bilirubin Negative (Negative) Urine Urobilinogen 0.2 (0.2-1.0) Ur Leukocyte Esterase Negative (Negative) Urine RBC 0-5 (0-5) /hpf Urine WBC 0-5 (0-5) /hpf Ur Squamous Epith Cells 0-5 (0-5) /hpf Urine Bacteria Few (FEW) /hpf Urine Mucus Not seen (FEW) /hpf Urine Opiates Screen (XJQZFM=691) Ur Buprenorphine Scrn (CUTOFF=10) Ur Oxycodone Screen (JVO0SS=376) Urine Methadone Screen (MNFXQH=228) Ur Propoxyphene Screen (RLFRXP=653) Ur Barbiturates Screen (YGONNX=455) Ur Tricyclics Screen (WWORKS=472) Ur Phencyclidine Scrn (CUTOFF=25) Ur Amphetamine Screen (GXPOKG=913) U Methamphetamines Scrn (GMHBYX=385) U Benzodiazepines Scrn (MUYEJE=137) U Cocaine Metab Screen (TLMTCX=104) U Marijuana (THC) Screen (CUTOFF=50) Ethyl Alcohol 0.00 (0.00) gm% 05/21/19 05/21/19 Range/Units 18:35 18:45 WBC (3.98-10.04) K/mm3 RBC (3.98-5.22) M/mm3 Hgb (11.2-15.7) gm/dl Hct (34.1-44.9) % MCV (79.4-94.8) fl MCH (25.6-32.2) pg MCHC (32.2-35.5) g/dl RDW Std Deviation (36.4-46.3) fL Plt Count (182-369) K/mm3 MPV (9.4-12.3) fl Neut % (Auto) (34.0-71.1) % Lymph % (Auto) (19.3-51.7) % [place] % (Auto) (4.7-12.5) % Eos % (Auto) (0.7-5.8) Baso % (Auto) (0.1-1.2) % Neut # (Auto) (1.56-6.13) K/mm3 Lymph # (Auto) (1.18-3.74) K/mm3 [place] # (Auto) (0.24-0.36) K/mm3 Eos # (Auto) (0.04-0.36) K/mm3 Baso # (Auto) (0.01-0.08) K/mm3 D-Dimer, Quantitative (0.19-0.50) mg/L Puncture Site Lt radial ABG pH 7.46 H (7.35-7.45) ABG pCO2 37.2 (35.0-45.0) mmHg ABG pO2 120.0 H (80.0-100.0) mmHg ABG HCO3 25.8 (22.0-26.0) meq/L ABG O2 Saturation 99.0 H (96.0-97.0) % ABG Base Excess 2.5 H (-2-2.0) Antonio Test Positive A-a Gradient 33 mmHg O2 Delivery Device Nasal cannula Oxygen Flow Rate 2.0 FiO2 28.00 (21.00-100.00) % Sodium (136-145) mEq/L Potassium (3.5-5.1) mEq/L Chloride (98-107) mEq/L Carbon Dioxide (21-32) mEq/L Anion Gap (5-15) BUN (7-18) mg/dL Creatinine (0.55-1.02) mg/dL Est Cr Clr Drug Dosing mL/min Estimated GFR (MDRD) (>60) mL/min BUN/Creatinine Ratio (14-18) Glucose (74-106) mg/dL Calcium (8.5-10.1) mg/dL Magnesium (1.8-2.4) mg/dl Total Bilirubin (0.2-1.0) mg/dL AST (15-37) U/L ALT (14-59) U/L Alkaline Phosphatase (46-116) U/L Total Protein (6.4-8.2) g/dl Albumin (3.4-5.0) g/dl Globulin gm/dL Albumin/Globulin Ratio (1-2) Lipase (73-393) U/L TSH 3rd Generation (0.358-3.74) uIU/mL HCG, Qual (NEGATIVE) Urine Color (Yellow) Urine Appearance (Clear) Urine pH (5.0-8.0) Ur Specific [place] (1.005-1.030) Urine Protein (Negative) Urine Glucose (UA) (Negative) Urine Ketones (Negative) Urine Occult Blood (Negative) Urine Nitrite (Negative) Urine Bilirubin (Negative) Urine Urobilinogen (0.2-1.0) Ur Leukocyte Esterase (Negative) Urine RBC (0-5) /hpf Urine WBC (0-5) /hpf Ur Squamous Epith Cells (0-5) /hpf Urine Bacteria (FEW) /hpf Urine Mucus (FEW) /hpf Urine Opiates Screen Negative (PPMXGZ=422) Ur Buprenorphine Scrn Negative (CUTOFF=10) Ur Oxycodone Screen Negative (ZYU1YO=884) Urine Methadone Screen Negative (HXMIUM=257) Ur Propoxyphene Screen Negative (UMUZVJ=122) Ur Barbiturates Screen Negative (DFLZMH=120) Ur Tricyclics Screen Negative (HQUDMP=982) Ur Phencyclidine Scrn Negative (CUTOFF=25) Ur Amphetamine Screen Negative (IQZLKI=465) U Methamphetamines Scrn Negative (VIYXYY=885) U Benzodiazepines Scrn Negative (UCYRDS=540) U Cocaine Metab Screen Negative (NHWCEC=209) U Marijuana (THC) Screen Negative (CUTOFF=50) Ethyl Alcohol (0.00) gm% Meds: Medications Generic Name Dose Route Start Last Admin Trade Name Freq PRN Reason Stop Dose Admin Potassium Chloride 10 meq/ 100 mls @ 100 mls/hr 05/21/19 18:45 05/21/19 18:54 Premix IV 100 mls/hr ASDIRECTED ONEIL Administration Sodium Chloride 10 ml 05/21/19 17:38 05/21/19 19:54 Saline Flush FLUSH 10 ml ASDIRECTED PRN Administration Keep Vein Open Discontinued Medications Generic Name Dose Route Start Last Admin Trade Name Jesus PRN Reason Stop Dose Admin Diatrizoate Meglum/Diatrizoate Sod 60 ml 05/21/19 17:46 05/21/19 19:54 Gastrografin 37% PO 05/21/19 17:47 60 ml ONETIME ONE Administration Hydromorphone HCl 1 mg 05/21/19 17:41 05/21/19 18:16 Dilaudid IVPUSH 05/21/19 17:42 Not Given ONETIME ONE Sodium Chloride 1,000 mls @ 1,000 mls/hr 05/21/19 17:38 05/21/19 17:59 Normal Saline IV 05/21/19 18:37 1,000 mls/hr .BOLUS STA Administration Magnesium Sulfate/Dextrose 1 100 mls @ 100 mls/hr 05/21/19 19:01 05/21/19 20: 28 gm/ Premix IV 05/21/19 20:00 100 mls/hr ONETIME ONE Administration Iopamidol 100 ml 05/21/19 17:46 05/21/19 19:54 Isovue-300 (61%) IVPUSH 05/21/19 17:47 100 ml ONETIME ONE Administration Ondansetron HCl 4 mg 05/21/19 17:38 05/21/19 18:00 Zofran IVPUSH 05/21/19 17:39 4 mg ONETIME ONE Administration Ondansetron HCl 4 mg 05/21/19 20:31 05/21/19 20:39 Zofran IVPUSH 05/21/19 20:32 4 mg ONETIME ONE Administration Potassium Chloride 40 meq 05/21/19 21:00 Klor-Con M20 PO 05/21/19 21:01 ONETIME ONE Departure - Departure Disposition: Refer to Observation Clinical Impression: Hypokalemia, Hypoxia - Discharge Information Referrals: PCP,None [Primary Care Provider] - Forms: ED Department Discharge Sepsis Event Note - Evaluation Sepsis Screening Result: No Definite Risk - Focused Exam Vital Signs: Vital Signs Temp Pulse Resp BP Pulse Ox 05/21/19 17:09 36.8 C 118 H 18 152/90 H 100 Date Exam was Performed: 05/21/19 Time Exam was Performed: 18:04 <Woody Holder - Last Filed: 05/21/19 19:04> Course - Re-Assessments/Exams Free Text/Narrative Re-Assessment/Exam: 05/21/19 19:04 I examined the patient myself and I agree with [facility]'s assessment and plan. I ordered an IV, labs, UA, UDS, CT of her abdomen and pelvis, CXR, and ABS. Her CBC looks good. Her D-dimer was normal at 0.3. Her pH was elevated at 7.46. Her pCO2 is normal at 37.2. Her pO2 is elevated at 120. Her Na is low at 134. Her K was low at 2.3. I have ordered K 10meq IV. Her anion gap is elevated at 19.3. Her glucose is elevated at 196. Her magnesium is a little low at 1.7. Her lipase is low at 67. Her HCG is negative. Her UDS is negative. Her UA shows no UTI. At one time her oxygen saturations were down to 75%. I had my nurse put on some oxygen and get a CXR and ABG. The ABG looks good. I do not have the CT of CXR back. Her K is low but I am not sure that explains what is going on. It is the end of my shift. Dr Whitmore to take over. Sepsis Event Note - Focused Exam Date Exam was Performed: 05/21/19 Time Exam was Performed: 19:04 <Trent Whitmore - Last Filed: 05/21/19 21:26> Course - Re-Assessments/Exams Free Text/Narrative Re-Assessment/Exam: 05/21/19 21:22 Wound care at change of shift eating CT no acute changes on the CT however she is got a 2.1 cm low-density mass of some sort next to the bowel within the left side of the pelvis that probably relates to the GI tract and could be a mass or small duplication cyst it is recommended that she have a nonemergent ultrasound to see if this can be visualized by that modality to allow for follow-up and to make sure it is not a high placed ovary. She appears to have a few gallstones. The patient had another hypoxic episode when she is sleeping. Case discussed with Dr. Pierce who will place the patient on observation to work on her hypokalemia and make sure this intermittent hypoxia is not anything. Departure - Departure Time of Disposition: 21:24 Sepsis Event Note - Focused Exam Date Exam was Performed: 05/21/19 Time Exam was Performed: 21:22
[2019-05-21] MEDS ORDERED: Potassium Chloride 10 MEQ in Premix Bag 1 BAG IV SCH (18:45)
--- NOTE | 2019-05-21 20:33 | CT ---
CT abdomen and pelvis Technique: Multiple axial sections were obtained from slightly below the dome of the diaphragm inferiorly through the pubic symphysis. Intravenous and oral contrast has been given. Delayed images were obtained through the bladder. Comparison: No prior abdominal imaging is available. Findings: Visualized lung bases show nothing acute. Visualized liver shows no discrete abnormality. Spleen appears within normal limits. Adrenal glands show no nodule. Kidneys show symmetric contrast enhancement. Cyst is noted within the mid to lower right kidney measuring about 1.6 cm in size. Several low density findings are seen within the gallbladder believed to represent cholesterol-containing gallstones. Pancreas appears within normal limits. Aorta shows no aneurysm. No retroperitoneal adenopathy is seen. No mesenteric abnormalities are noted. Appendix is not visualized with certainty. Low density structure is noted along the left side of the pelvis next to bowel. This appears to be contiguous within bowel and difficult to exclude a low density lesion within or next to bowel. This finding measures approximately 2.1 cm. No pelvic mass or adenopathy is seen. No free fluid or inflammatory change is appreciated. Bone window settings were reviewed. Within normal limits for the patient's age. Delayed images shows contrast within the distal ureters and within the bladder. Impression: 1. 2.1 cm low density finding next of bowel within the left side of the pelvis. This most likely relates to the GI tract and could represent low density mass or small duplication cyst. Recommend nonemergent ultrasound to see if this can be visualized by that modality to allow for follow-up. In addition, ultrasound can be performed to make sure this does not represent a high placed ovary. 2. Several low-density findings within the gallbladder presumably representing cholesterol-containing gallstones. 3. Other findings which are felt to be incidental. Nothing acute is appreciated on CT study of the abdomen and pelvis. Diagnostic code #9 This report was dictated in [place] Standard Time
--- NOTE | 2019-05-21 20:33 | CR ---
Chest: 2 views of the chest were obtained. Comparison: No prior chest imaging is available. Heart size and mediastinum are normal. Lungs are clear. Bony structures are within normal limits for the patient's age. Impression: 1. Nothing acute is appreciated on 2 view chest x-ray. Diagnostic code #1 This report was dictated in [place] Standard Time
[2019-05-21] MEDS ORDERED: Potassium Chloride 20 MEQ Tab.ER PO ONE (21:00)
[2019-05-21] MEDS ORDERED: Acetaminophen/HYDROcodone 325-5 MG Tab PO PRN (22:17)
[2019-05-21] MEDS ORDERED: Promethazine 12.5 MG in Sodium Chloride 0.9% 50 ML IV PRN (22:17)
[2019-05-21] MEDS ORDERED: Ondansetron 4 MG/2 ML SDV IV PRN (22:17)
[2019-05-21] MEDS ORDERED: Acetaminophen 325 MG Tab PO PRN (22:17)
[2019-05-21] MEDS ORDERED: HYDROmorphone 0.5 MG/0.5 ML Syringe IVPUSH PRN (22:17)
[2019-05-21] MEDS ORDERED: Albuterol/Ipratropium 3.0-0.5 MG/3 ML Neb Soln NEB PRN (22:17)
[2019-05-21] MEDS ORDERED: Ketorolac 30 MG/ML SDV IV PRN (22:17)
[2019-05-21] MEDS ORDERED: LORazepam 2 MG/ML SDV IV PRN (22:17)
[2019-05-21] MEDS ORDERED: Scopolamine 1.5 MG Transdermal Patch TRDERM STA (22:25)
[2019-05-21] MEDS ORDERED: hydrALAZINE 20 MG/ML SDV IVPUSH PRN (22:29)
[2019-05-21] MEDS ORDERED: Metoprolol Tartrate 5 MG/5 ML SDV IVPUSH PRN (22:29)
[2019-05-21] MEDS ORDERED: Lactated Ringers 1,000 ML IV SCH (22:30)
[2019-05-22] MEDS ORDERED: Pantoprazole 40 MG Vial IVPUSH SCH (01:30)
[2019-05-22] MEDS: Temazepam 15 MG Cap PO PRN (02:56)
[2019-05-22] MEDS: Levothyroxine 88 MCG Tab PO SCH (06:14)
--- NOTE | 2019-05-22 07:03 | PCM.HP.2 ---
H&P History of Present Illness - General Date of Service: 05/22/19 Admit Problem/Dx: Admission Diagnosis/Problem Admission Diagnosis/Problem Hypokalemia Source of Information: Patient, Provider, RN Notes Reviewed History Limitations: Reports: No Limitations - History of Present Illness Initial Comments - Free Text/Narative: Lillian Lopez is a 49yo male presents to ED on 05/21/2019 complaining of shortness of breath, weakness, and confusion. States she has crampy abdominal pain nausea and vomiting as well. Symptoms started earlier in the day and have gradually worsened. Per the ED notes the patient was found hunched over garbage can by her daughter and was noted to be disorientated and confused, having trouble staying awake. Reports she does have a history of hypokalemia and had similar symptoms at that time, being hospitalized for 3 days. In the ED she reports diarrhea and palpitations. The ED temp is 36.8 Celsius. Pulse 118. Respirations 18. Blood pressure 150/ 90. Pulse ox 100%. Labs are obtained showing a WBC of 8.44. Hemoglobin 13.5. Hematocrit 37.9. She is normocytic. Blood sugar 337,000. Neutrophils are elevated at 83.4%. M is slightly low at 134. Potassium is very low at 2.3. Carbon oxide 25. Anion gap is 19.3. BUN is 11. Creatinine 0.8. EGFR greater than 60. Glucose is high at 196. Calcium 9.9. Magnesium is low at 1.7. Bilirubin 0.9. AST is 19, ALT 25, alkaline phosphatase 70. Albumin is 4.6. Lipase is 67. Urine hCG is negative. D-dimer 0.3. TSH is slightly high at 0.489. UA is negative however 1+ glucose, 3+ ketones, trace occult blood are seen. Ethyl alcohol is 0.00. Urine drug screen is negative. ABG is obtained in the left radial showing a pH of 7.46. PCO2 is 37.2. PO2 is 120. HCO3 is 25.8. Base excess is 2.5. O2 saturation is 99%. She was given a K rider of 10 mill equivalents IV. She was noted to have saturations around 75% in the ED. Chest x-ray was obtained showing nothing acute. CT the abdomen and pelvis is obtained showin. 2 x 1 cm low-density finding next the bowel within the left side of the pelvis. This most likely relates to the GI tract and could represent low density mass or small duplication cyst. Recommend nonemergent ultrasound to see if this can be visualized by that modality to allow for follow -up. In addition, ultrasound can be performed to make sure this does not represent a high placed ovary. 2. Several low-density findings within the gallbladder presumably representing cholesterol containing gallstones. 3. Other findings which are felt to be incidental. Nothing acute is appreciated CT study of the abdomen and pelvis. She subsequently admitted to the medical floor MedSur status with telemetry for hypo-kalemia and transient hypoxia. She carries a history of hypertension, bladder sling, migraines, depression, hypothyroidism. She was never a smoker. Does not have a primary care provider. Upper Abdominal Pain Score (Numeric/FACES): 4 - Related Data Allergies/Adverse Reactions: Allergies Allergy/AdvReac Type Severity Reaction Status Date / Time levofloxacin [From Levaquin] Allergy Hallucinati Verified 05/21/19 22:37 ons Penicillins Allergy Hives Verified 05/21/19 22:37 Home Medications: Home Meds Levothyroxine Sodium [Levoxyl] 88 mcg PO DAILY 02/25/17 [History] Lisinopril [Zestril] 20 mg PO BEDTIME 05/21/19 [History] Potassium Chloride 20 meq PO BID 05/21/19 [History] amLODIPine [Norvasc] 10 mg PO DAILY 05/21/19 [History] hydroCHLOROthiazide [Hydrochlorothiazide] 25 mg PO DAILY 05/21/19 [History] Past Medical History Cardiovascular History: Reports: Hypertension Other Cardiovascular History: Had taken Redux in the past. She sees provider who routinely checks her mitral valve. Gastrointestinal History: Reports: None Genitourinary History: Reports: Other (See Below) Other Genitourinary History: bladder lift/sling [employer] History: Reports: Neurological History: Reports: Migraines Psychiatric History: Reports: Depression Endocrine/Metabolic History: Reports: Hypothyroidism Other Endocrine/Metabolic History: Pt. takes levothyroxine 88mcg which she stated she took a month ago - Infectious Disease History Infectious Disease History: Reports: Chicken Pox, Shingles - Past Surgical History HEENT Surgical History: Reports: JOSE GI Surgical History: Reports: Appendectomy Female Surgical History: Reports: D&C, Hysterectomy, Other (See Below) Other Female Surgeries/Procedures: bladder lift Musculoskeletal Surgical History: Reports: Other (See Below) Other Musculoskeletal Surgeries/Procedures:: cyst removed from spine mar 2019 also states she did a laminectomy Social & Family History - Family History Family Medical History: Noncontributory HEENT: Reports: None Cardiac: Reports: Hypertension, Other (See Below) Other Cardiac Family History: Pt. stated that, "my mother had heart and B/P problems, low B/P I think". mother had rheumatic fever. Father has HTN OBGYN: Reports: Musculoskeletal: Reports: Back pain, Chronic Other Musculoskeletal Family History: Mother Neurological: Reports: Dementia, TIA Other Neurological Family History: Mother had stroke at age 26. Father has dementia and TIA Psychiatric: Reports: Depression Endocrine/Metabolic: Reports: Diabetes, type II, Hypothyroidism Dermatologic: Reports: None Oncologic: Reports: Breast, Renal, Skin Other Oncologic Family History: Skin and breast cancer - sister. "mother had tumor on kidney" - Tobacco Use Smoking Status *Q: Never Smoker - Caffeine Use Caffeine Use: Reports: Coffee, Soda - Recreational Drug Use Recreational Drug Use: No H&P Review of Systems - Review of Systems: Review Of Systems: See Below General: Reports: No Symptoms HEENT: Reports: No Symptoms Pulmonary: Reports: No Symptoms Cardiovascular: Reports: No Symptoms Gastrointestinal: Reports: No Symptoms Genitourinary: Reports: No Symptoms Musculoskeletal: Reports: No Symptoms Skin: Reports: No Symptoms Psychiatric: Reports: No Symptoms Neurological: Reports: No Symptoms Hematologic/Lymphatic: Reports: No Symptoms Immunologic: Reports: No Symptoms Exam - Exam Exam: See Below - Vital Signs Vital Signs: Last Vital Signs Temp 98.1 F 05/21/19 22:20 Pulse 71 05/22/19 03:59 Resp 16 05/22/19 03:59 BP 134/92 H 05/22/19 03:59 Pulse Ox 99 05/22/19 03:59 Weight: 185 lb 1.6 oz - Exam Quality Assessment: DVT Prophylaxis General: Alert, Oriented, 4 HEENT: Conjunctiva Clear, EACs Clear, Hearing Intact, Mucosa Moist & Marble, Nares Patent, Posterior Pharynx Clear, PERRLA Neck: Supple, Trachea Midline, 2 Lungs: Clear to Auscultation, Normal Respiratory Effort Cardiovascular: Regular Rate, Regular Rhythm GI/Abdominal Exam: Normal Bowel Sounds, Soft, No Distention, No Abnormal Bruit, Tender (Mild epigastric and RUQ tenderness. ) (Female) Exam: Deferred Rectal (Female) Exam: Deferred Back Exam: Normal Inspection, Full Range of Motion, NT Extremities: Normal Inspection, Normal Range of Motion, Non-Tender, No Pedal Edema, Normal Capillary Refill Skin: Warm, Dry, Intact Neurological: Cranial Nerves Intact (Grossly ) Neuro Extensive - Mental Status: Alert, Oriented x3, Normal Mood/Affect - Patient Data Lab Results Last 24 hrs: Laboratory Results - last 24 hr 05/21/19 05/21/19 05/21/19 Range/Units 17:45 17:45 17:45 WBC 8.44 (3.98-10.04) K/mm3 RBC 4.66 (3.98-5.22) M/mm3 Hgb 13.5 (11.2-15.7) gm/dl Hct 37.9 (34.1-44.9) % MCV 81.3 (79.4-94.8) fl MCH 29.0 (25.6-32.2) pg MCHC 35.6 H (32.2-35.5) g/dl RDW Std Deviation 37.7 (36.4-46.3) fL Plt Count 337 (182-369) K/mm3 MPV 9.1 L (9.4-12.3) fl Neut % (Auto) 83.4 H (34.0-71.1) % Lymph % (Auto) 11.7 L (19.3-51.7) % [place] % (Auto) 4.6 L (4.7-12.5) % Eos % (Auto) 0.1 L (0.7-5.8) Baso % (Auto) 0.2 (0.1-1.2) % Neut # (Auto) 7.03 H (1.56-6.13) K/mm3 Lymph # (Auto) 0.99 L (1.18-3.74) K/mm3 [place] # (Auto) 0.39 H (0.24-0.36) K/mm3 Eos # (Auto) 0.01 L (0.04-0.36) K/mm3 Baso # (Auto) 0.02 (0.01-0.08) K/mm3 D-Dimer, Quantitative (0.19-0.50) mg/L Puncture Site ABG pH (7.35-7.45) ABG pCO2 (35.0-45.0) mmHg ABG pO2 (80.0-100.0) mmHg ABG HCO3 (22.0-26.0) meq/L ABG O2 Saturation (96.0-97.0) % ABG Base Excess (-2-2.0) Antonio Test A-a Gradient mmHg O2 Delivery Device Oxygen Flow Rate FiO2 (21.00-100.00) % Sodium 134 L D (136-145) mEq/L Potassium 2.3 L* D (3.5-5.1) mEq/L Chloride 92 L D (98-107) mEq/L Carbon Dioxide 25 (21-32) mEq/L Anion Gap 19.3 H (5-15) BUN 11 (7-18) mg/dL Creatinine 0.8 (0.55-1.02) mg/dL Est Cr Clr Drug Dosing 81.38 mL/min Estimated GFR (MDRD) > 60 (>60) mL/min BUN/Creatinine Ratio 13.8 L (14-18) Glucose 196 H (74-106) mg/dL Serum Osmolality (280-300) mosm/kg Calcium 9.9 D (8.5-10.1) mg/dL Magnesium 1.7 L (1.8-2.4) mg/dl Total Bilirubin 0.9 (0.2-1.0) mg/dL AST 18 (15-37) U/L ALT 25 (14-59) U/L Alkaline Phosphatase 70 (46-116) U/L Total Protein 8.1 (6.4-8.2) g/dl Albumin 4.6 (3.4-5.0) g/dl Globulin 3.5 gm/dL Albumin/Globulin Ratio 1.3 (1-2) Lipase 67 L (73-393) U/L Free T4 (0.76-1.46) ng/dL TSH 3rd Generation (0.358-3.74) uIU/mL HCG, Qual Negative (NEGATIVE) Urine Color (Yellow) Urine Appearance (Clear) Urine pH (5.0-8.0) Ur Specific [place] (1.005-1.030) Urine Protein (Negative) Urine Glucose (UA) (Negative) Urine Ketones (Negative) Urine Occult Blood (Negative) Urine Nitrite (Negative) Urine Bilirubin (Negative) Urine Urobilinogen (0.2-1.0) Ur Leukocyte Esterase (Negative) Urine RBC (0-5) /hpf Urine WBC (0-5) /hpf Ur Squamous Epith Cells (0-5) /hpf Urine Bacteria (FEW) /hpf Urine Mucus (FEW) /hpf Urine Osmolality (400-1100) mosm/kg Ur Random Sodium (40-220) mEq/L Urine Opiates Screen (PKIJDG=816) Ur Buprenorphine Scrn (CUTOFF=10) Ur Oxycodone Screen (AUY3JN=788) Urine Methadone Screen (ZJEOPC=063) Ur Propoxyphene Screen (FFQXSA=689) Ur Barbiturates Screen (VBUGJS=043) Ur Tricyclics Screen (PFSZCN=988) Ur Phencyclidine Scrn (CUTOFF=25) Ur Amphetamine Screen (UTZHSI=003) U Methamphetamines Scrn (WUSHQD=054) U Benzodiazepines Scrn (IEJLBB=771) U Cocaine Metab Screen (OENLYM=130) U Marijuana (THC) Screen (CUTOFF=50) Ethyl Alcohol (0.00) gm% H. pylori IgG Antibody (NEGATIVE) Monoscreen (NEGATIVE) 05/21/19 05/21/19 05/21/19 Range/Units 17:45 17:45 17:45 WBC (3.98-10.04) K/mm3 RBC (3.98-5.22) M/mm3 Hgb (11.2-15.7) gm/dl Hct (34.1-44.9) % MCV (79.4-94.8) fl MCH (25.6-32.2) pg MCHC (32.2-35.5) g/dl RDW Std Deviation (36.4-46.3) fL Plt Count (182-369) K/mm3 MPV (9.4-12.3) fl Neut % (Auto) (34.0-71.1) % Lymph % (Auto) (19.3-51.7) % [place] % (Auto) (4.7-12.5) % Eos % (Auto) (0.7-5.8) Baso % (Auto) (0.1-1.2) % Neut # (Auto) (1.56-6.13) K/mm3 Lymph # (Auto) (1.18-3.74) K/mm3 [place] # (Auto) (0.24-0.36) K/mm3 Eos # (Auto) (0.04-0.36) K/mm3 Baso # (Auto) (0.01-0.08) K/mm3 D-Dimer, Quantitative 0.30 (0.19-0.50) mg/L Puncture Site ABG pH (7.35-7.45) ABG pCO2 (35.0-45.0) mmHg ABG pO2 (80.0-100.0) mmHg ABG HCO3 (22.0-26.0) meq/L ABG O2 Saturation (96.0-97.0) % ABG Base Excess (-2-2.0) Antonio Test A-a Gradient mmHg O2 Delivery Device Oxygen Flow Rate FiO2 (21.00-100.00) % Sodium (136-145) mEq/L Potassium (3.5-5.1) mEq/L Chloride (98-107) mEq/L Carbon Dioxide (21-32) mEq/L Anion Gap (5-15) BUN (7-18) mg/dL Creatinine (0.55-1.02) mg/dL Est Cr Clr Drug Dosing mL/min Estimated GFR (MDRD) (>60) mL/min BUN/Creatinine Ratio (14-18) Glucose (74-106) mg/dL Serum Osmolality 284 (280-300) mosm/kg Calcium (8.5-10.1) mg/dL Magnesium (1.8-2.4) mg/dl Total Bilirubin (0.2-1.0) mg/dL AST (15-37) U/L ALT (14-59) U/L Alkaline Phosphatase (46-116) U/L Total Protein (6.4-8.2) g/dl Albumin (3.4-5.0) g/dl Globulin gm/dL Albumin/Globulin Ratio (1-2) Lipase (73-393) U/L Free T4 1.89 H (0.76-1.46) ng/dL TSH 3rd Generation 0.489 (0.358-3.74) uIU/mL HCG, Qual (NEGATIVE) Urine Color (Yellow) Urine Appearance (Clear) Urine pH (5.0-8.0) Ur Specific [place] (1.005-1.030) Urine Protein (Negative) Urine Glucose (UA) (Negative) Urine Ketones (Negative) Urine Occult Blood (Negative) Urine Nitrite (Negative) Urine Bilirubin (Negative) Urine Urobilinogen (0.2-1.0) Ur Leukocyte Esterase (Negative) Urine RBC (0-5) /hpf Urine WBC (0-5) /hpf Ur Squamous Epith Cells (0-5) /hpf Urine Bacteria (FEW) /hpf Urine Mucus (FEW) /hpf Urine Osmolality (400-1100) mosm/kg Ur Random Sodium (40-220) mEq/L Urine Opiates Screen (HJRCLU=672) Ur Buprenorphine Scrn (CUTOFF=10) Ur Oxycodone Screen (KNI6TW=823) Urine Methadone Screen (SXGZCB=421) Ur Propoxyphene Screen (RTHYDQ=260) Ur Barbiturates Screen (KEMZKC=530) Ur Tricyclics Screen (IYJCCG=572) Ur Phencyclidine Scrn (CUTOFF=25) Ur Amphetamine Screen (RPSGYB=454) U Methamphetamines Scrn (MWONTV=483) U Benzodiazepines Scrn (RJYIMA=126) U Cocaine Metab Screen (RSWMSQ=856) U Marijuana (THC) Screen (CUTOFF=50) Ethyl Alcohol 0.00 (0.00) gm% H. pylori IgG Antibody (NEGATIVE) Monoscreen (NEGATIVE) 05/21/19 05/21/19 05/21/19 Range/Units 17:45 17:45 18:35 WBC (3.98-10.04) K/mm3 RBC (3.98-5.22) M/mm3 Hgb (11.2-15.7) gm/dl Hct (34.1-44.9) % MCV (79.4-94.8) fl MCH (25.6-32.2) pg MCHC (32.2-35.5) g/dl RDW Std Deviation (36.4-46.3) fL Plt Count (182-369) K/mm3 MPV (9.4-12.3) fl Neut % (Auto) (34.0-71.1) % Lymph % (Auto) (19.3-51.7) % [place] % (Auto) (4.7-12.5) % Eos % (Auto) (0.7-5.8) Baso % (Auto) (0.1-1.2) % Neut # (Auto) (1.56-6.13) K/mm3 Lymph # (Auto) (1.18-3.74) K/mm3 [place] # (Auto) (0.24-0.36) K/mm3 Eos # (Auto) (0.04-0.36) K/mm3 Baso # (Auto) (0.01-0.08) K/mm3 D-Dimer, Quantitative (0.19-0.50) mg/L Puncture Site ABG pH (7.35-7.45) ABG pCO2 (35.0-45.0) mmHg ABG pO2 (80.0-100.0) mmHg ABG HCO3 (22.0-26.0) meq/L ABG O2 Saturation (96.0-97.0) % ABG Base Excess (-2-2.0) Antonio Test A-a Gradient mmHg O2 Delivery Device Oxygen Flow Rate FiO2 (21.00-100.00) % Sodium (136-145) mEq/L Potassium (3.5-5.1) mEq/L Chloride (98-107) mEq/L Carbon Dioxide (21-32) mEq/L Anion Gap (5-15) BUN (7-18) mg/dL Creatinine (0.55-1.02) mg/dL Est Cr Clr Drug Dosing mL/min Estimated GFR (MDRD) (>60) mL/min BUN/Creatinine Ratio (14-18) Glucose (74-106) mg/dL Serum Osmolality (280-300) mosm/kg Calcium (8.5-10.1) mg/dL Magnesium (1.8-2.4) mg/dl Total Bilirubin (0.2-1.0) mg/dL AST (15-37) U/L ALT (14-59) U/L Alkaline Phosphatase (46-116) U/L Total Protein (6.4-8.2) g/dl Albumin (3.4-5.0) g/dl Globulin gm/dL Albumin/Globulin Ratio (1-2) Lipase (73-393) U/L Free T4 (0.76-1.46) ng/dL TSH 3rd Generation (0.358-3.74) uIU/mL HCG, Qual (NEGATIVE) Urine Color Light yellow (Yellow) Urine Appearance Clear (Clear) Urine pH 7.5 (5.0-8.0) Ur Specific [place] 1.025 (1.005-1.030) Urine Protein Negative (Negative) Urine Glucose (UA) 1+ H (Negative) Urine Ketones 3+ H (Negative) Urine Occult Blood Trace-intact H (Negative) Urine Nitrite Negative (Negative) Urine Bilirubin Negative (Negative) Urine Urobilinogen 0.2 (0.2-1.0) Ur Leukocyte Esterase Negative (Negative) Urine RBC 0-5 (0-5) /hpf Urine WBC 0-5 (0-5) /hpf Ur Squamous Epith Cells 0-5 (0-5) /hpf Urine Bacteria Few (FEW) /hpf Urine Mucus Not seen (FEW) /hpf Urine Osmolality (400-1100) mosm/kg Ur Random Sodium (40-220) mEq/L Urine Opiates Screen (WHOGFD=791) Ur Buprenorphine Scrn (CUTOFF=10) Ur Oxycodone Screen (IRQ2CU=747) Urine Methadone Screen (TLJGNH=849) Ur Propoxyphene Screen (WHNQAZ=005) Ur Barbiturates Screen (RCTZBQ=960) Ur Tricyclics Screen (MXZYLS=495) Ur Phencyclidine Scrn (CUTOFF=25) Ur Amphetamine Screen (ICMIKN=925) U Methamphetamines Scrn (XCJZHK=226) U Benzodiazepines Scrn (DDHFWT=306) U Cocaine Metab Screen (QUNMGS=567) U Marijuana (THC) Screen (CUTOFF=50) Ethyl Alcohol (0.00) gm% H. pylori IgG Antibody Positive H (NEGATIVE) Monoscreen Negative (NEGATIVE) 05/21/19 05/21/19 05/21/19 Range/Units 18:35 18:45 22:43 WBC (3.98-10.04) K/mm3 RBC (3.98-5.22) M/mm3 Hgb (11.2-15.7) gm/dl Hct (34.1-44.9) % MCV (79.4-94.8) fl MCH (25.6-32.2) pg MCHC (32.2-35.5) g/dl RDW Std Deviation (36.4-46.3) fL Plt Count (182-369) K/mm3 MPV (9.4-12.3) fl Neut % (Auto) (34.0-71.1) % Lymph % (Auto) (19.3-51.7) % [place] % (Auto) (4.7-12.5) % Eos % (Auto) (0.7-5.8) Baso % (Auto) (0.1-1.2) % Neut # (Auto) (1.56-6.13) K/mm3 Lymph # (Auto) (1.18-3.74) K/mm3 [place] # (Auto) (0.24-0.36) K/mm3 Eos # (Auto) (0.04-0.36) K/mm3 Baso # (Auto) (0.01-0.08) K/mm3 D-Dimer, Quantitative (0.19-0.50) mg/L Puncture Site Lt radial ABG pH 7.46 H (7.35-7.45) ABG pCO2 37.2 (35.0-45.0) mmHg ABG pO2 120.0 H (80.0-100.0) mmHg ABG HCO3 25.8 (22.0-26.0) meq/L ABG O2 Saturation 99.0 H (96.0-97.0) % ABG Base Excess 2.5 H (-2-2.0) Antonio Test Positive A-a Gradient 33 mmHg O2 Delivery Device Nasal cannula Oxygen Flow Rate 2.0 FiO2 28.00 (21.00-100.00) % Sodium (136-145) mEq/L Potassium (3.5-5.1) mEq/L Chloride (98-107) mEq/L Carbon Dioxide (21-32) mEq/L Anion Gap (5-15) BUN (7-18) mg/dL Creatinine (0.55-1.02) mg/dL Est Cr Clr Drug Dosing mL/min Estimated GFR (MDRD) (>60) mL/min BUN/Creatinine Ratio (14-18) Glucose (74-106) mg/dL Serum Osmolality (280-300) mosm/kg Calcium (8.5-10.1) mg/dL Magnesium 2.1 (1.8-2.4) mg/dl Total Bilirubin (0.2-1.0) mg/dL AST (15-37) U/L ALT (14-59) U/L Alkaline Phosphatase (46-116) U/L Total Protein (6.4-8.2) g/dl Albumin (3.4-5.0) g/dl Globulin gm/dL Albumin/Globulin Ratio (1-2) Lipase (73-393) U/L Free T4 (0.76-1.46) ng/dL TSH 3rd Generation (0.358-3.74) uIU/mL HCG, Qual (NEGATIVE) Urine Color (Yellow) Urine Appearance (Clear) Urine pH (5.0-8.0) Ur Specific [place] (1.005-1.030) Urine Protein (Negative) Urine Glucose (UA) (Negative) Urine Ketones (Negative) Urine Occult Blood (Negative) Urine Nitrite (Negative) Urine Bilirubin (Negative) Urine Urobilinogen (0.2-1.0) Ur Leukocyte Esterase (Negative) Urine RBC (0-5) /hpf Urine WBC (0-5) /hpf Ur Squamous Epith Cells (0-5) /hpf Urine Bacteria (FEW) /hpf Urine Mucus (FEW) /hpf Urine Osmolality (400-1100) mosm/kg Ur Random Sodium (40-220) mEq/L Urine Opiates Screen Negative (BQNVNY=125) Ur Buprenorphine Scrn Negative (CUTOFF=10) Ur Oxycodone Screen Negative (AUD2QT=783) Urine Methadone Screen Negative (NOUZUU=237) Ur Propoxyphene Screen Negative (IGTNXT=482) Ur Barbiturates Screen Negative (BYNAOW=857) Ur Tricyclics Screen Negative (PUAROK=256) Ur Phencyclidine Scrn Negative (CUTOFF=25) Ur Amphetamine Screen Negative (IFKGWD=802) U Methamphetamines Scrn Negative (MHQKJE=008) U Benzodiazepines Scrn Negative (WQSRKM=771) U Cocaine Metab Screen Negative (CCIZGJ=541) U Marijuana (THC) Screen Negative (CUTOFF=50) Ethyl Alcohol (0.00) gm% H. pylori IgG Antibody (NEGATIVE) Monoscreen (NEGATIVE) 05/21/19 05/21/19 Range/Units 23:00 23:00 WBC (3.98-10.04) K/mm3 RBC (3.98-5.22) M/mm3 Hgb (11.2-15.7) gm/dl Hct (34.1-44.9) % MCV (79.4-94.8) fl MCH (25.6-32.2) pg MCHC (32.2-35.5) g/dl RDW Std Deviation (36.4-46.3) fL Plt Count (182-369) K/mm3 MPV (9.4-12.3) fl Neut % (Auto) (34.0-71.1) % Lymph % (Auto) (19.3-51.7) % [place] % (Auto) (4.7-12.5) % Eos % (Auto) (0.7-5.8) Baso % (Auto) (0.1-1.2) % Neut # (Auto) (1.56-6.13) K/mm3 Lymph # (Auto) (1.18-3.74) K/mm3 [place] # (Auto) (0.24-0.36) K/mm3 Eos # (Auto) (0.04-0.36) K/mm3 Baso # (Auto) (0.01-0.08) K/mm3 D-Dimer, Quantitative (0.19-0.50) mg/L Puncture Site ABG pH (7.35-7.45) ABG pCO2 (35.0-45.0) mmHg ABG pO2 (80.0-100.0) mmHg ABG HCO3 (22.0-26.0) meq/L ABG O2 Saturation (96.0-97.0) % ABG Base Excess (-2-2.0) Antonio Test A-a Gradient mmHg O2 Delivery Device Oxygen Flow Rate FiO2 (21.00-100.00) % Sodium (136-145) mEq/L Potassium (3.5-5.1) mEq/L Chloride (98-107) mEq/L Carbon Dioxide (21-32) mEq/L Anion Gap (5-15) BUN (7-18) mg/dL Creatinine (0.55-1.02) mg/dL Est Cr Clr Drug Dosing mL/min Estimated GFR (MDRD) (>60) mL/min BUN/Creatinine Ratio (14-18) Glucose (74-106) mg/dL Serum Osmolality (280-300) mosm/kg Calcium (8.5-10.1) mg/dL Magnesium (1.8-2.4) mg/dl Total Bilirubin (0.2-1.0) mg/dL AST (15-37) U/L ALT (14-59) U/L Alkaline Phosphatase (46-116) U/L Total Protein (6.4-8.2) g/dl Albumin (3.4-5.0) g/dl Globulin gm/dL Albumin/Globulin Ratio (1-2) Lipase (73-393) U/L Free T4 (0.76-1.46) ng/dL TSH 3rd Generation (0.358-3.74) uIU/mL HCG, Qual (NEGATIVE) Urine Color (Yellow) Urine Appearance (Clear) Urine pH (5.0-8.0) Ur Specific [place] (1.005-1.030) Urine Protein (Negative) Urine Glucose (UA) (Negative) Urine Ketones (Negative) Urine Occult Blood (Negative) Urine Nitrite (Negative) Urine Bilirubin (Negative) Urine Urobilinogen (0.2-1.0) Ur Leukocyte Esterase (Negative) Urine RBC (0-5) /hpf Urine WBC (0-5) /hpf Ur Squamous Epith Cells (0-5) /hpf Urine Bacteria (FEW) /hpf Urine Mucus (FEW) /hpf Urine Osmolality 406 (400-1100) mosm/kg Ur Random Sodium 93 (40-220) mEq/L Urine Opiates Screen (WRZLAI=959) Ur Buprenorphine Scrn (CUTOFF=10) Ur Oxycodone Screen (EAF9GD=282) Urine Methadone Screen (BBBRIG=613) Ur Propoxyphene Screen (CZBAZA=554) Ur Barbiturates Screen (HJWWHR=962) Ur Tricyclics Screen (SWUEMS=777) Ur Phencyclidine Scrn (CUTOFF=25) Ur Amphetamine Screen (EOTCGU=051) U Methamphetamines Scrn (HVSOOG=409) U Benzodiazepines Scrn (YWBHJD=134) U Cocaine Metab Screen (VOPRIF=983) U Marijuana (THC) Screen (CUTOFF=50) Ethyl Alcohol (0.00) gm% H. pylori IgG Antibody (NEGATIVE) Monoscreen (NEGATIVE) Result Diagrams: 05/22/19 06:50 05/22/19 06:50 Flex Results Last 24 hrs: Microbiology 05/21/19 23:00 Influenza Type A Antigen Screen - Final Nasal, Unspecified NEGATIVE INFLUENZA A VIRUS AG REFERENCE RANGE: NEGATIVE Influenza Type B Antigen Screen - Final NEGATIVE INFLUENZA B VIRUS AG REFERENCE RANGE: NEGATIVE Sepsis Event Note - Evaluation Sepsis Screening Result: No Definite Risk - Focused Exam Vital Signs: Vital Signs Temp Pulse Resp BP Pulse Ox 05/22/19 03:59 71 16 134/92 H 99 05/22/19 02:55 72 99 05/21/19 22:20 98.1 F 78 16 154/94 H 98 Date Exam was Performed: 05/22/19 Time Exam was Performed: 14:27 - Problem List (1) H. pylori infection SNOMED Code(s): 733582517 ICD Code: A04.8 - OTHER SPECIFIED BACTERIAL INTESTINAL INFECTIONS Status: Acute Priority: High Current Visit: Yes (2) Hypomagnesemia SNOMED Code(s): 633293201 ICD Code: E83.42 - HYPOMAGNESEMIA Status: Acute Priority: High Current Visit: Yes (3) Hypokalemia SNOMED Code(s): 50755957 ICD Code: E87.6 - HYPOKALEMIA Status: Acute Priority: High Current Visit: Yes (4) Hypoxia SNOMED Code(s): 623073558 ICD Code: R09.02 - HYPOXEMIA Status: Acute Priority: High Current Visit : Yes Problem List Initiated/Reviewed/Updated: Yes Orders Last 24hrs: Active Orders 24 hr Category Date Time Status Admission Status [Patient Status] [ADT] Routine ADT 05/21/19 21:55 Active Antiembolic Devices [RC] BID Care 05/21/19 22:19 Active Cardiac Monitoring [RC] CONTINUOUS Care 05/21/19 22:18 Active Height and Weight [RC] 04 Care 05/21/19 22:17 Active Intake and Output [RC] 04,16 Care 05/21/19 22:18 Active Oxygen Therapy [RC] PRN Care 05/21/19 22:17 Active Pulse Oximetry [RC] PRN Care 05/21/19 22:18 Active RT Aerosol Therapy [RC] ASDIRECTED Care 05/21/19 22:20 Active Up With Assistance [RC] BID Care 05/21/19 22:17 Active VTE/DVT Education [RC] PER UNIT ROUTINE Care 05/21/19 22:17 Active Vital Signs [RC] Q4HR Care 05/21/19 22:17 Active Consult to Case Management/Carbide Grinder [CONS] Cons 05/21/19 22:17 Active Routine Clear Liquid Diet [DIET] Diet 05/21/19 Breakfast Active Head wo Cont [CT] Stat Exams 05/21/19 22:33 Ordered C DIFFICILE PCR W/REFLEX [MOLEC] Stat Lab 05/21/19 22:32 Ordered CBC WITH AUTO DIFF [HEME] AM Lab 05/22/19 05:11 Ordered CBC WITH AUTO DIFF [HEME] AM Lab 05/23/19 05:11 Ordered CBC WITH AUTO DIFF [HEME] AM Lab 05/24/19 05:11 Ordered CBC WITH AUTO DIFF [HEME] AM Lab 05/25/19 05:11 Ordered CHLORIDE, URINE Routine Lab 05/21/19 23:00 Received COMPREHENSIVE METABOLIC PN,CMP [CHEM] AM Lab 05/22/19 05:11 Ordered COMPREHENSIVE METABOLIC PN,CMP [CHEM] AM Lab 05/23/19 05:11 Ordered COMPREHENSIVE METABOLIC PN,CMP [CHEM] AM Lab 05/24/19 05:11 Ordered MAGNESIUM [CHEM] AM Lab 05/22/19 05:11 Ordered MAGNESIUM [CHEM] AM Lab 05/23/19 05:11 Ordered MAGNESIUM [CHEM] AM Lab 05/24/19 05:11 Ordered POTASSIUM, URINE Routine Lab 05/21/19 23:00 Received RESPIRATORY PANEL Routine Lab 05/21/19 23:00 Received Acetaminophen [Tylenol] Med 05/21/19 22:17 Active 650 mg PO Q4H PRN Acetaminophen/HYDROcodone [[place] 325-5 MG] Med 05/21/19 22:17 Active 1 tab PO Q4H PRN Albuterol/Ipratropium [DuoNeb 3.0-0.5 MG/3 ML] Med 05/21/19 22:17 Active 3 ml NEB Q4H PRN HYDROmorphone [Dilaudid] Med 05/21/19 22:17 Active 0.25 mg IVPUSH Q2H PRN Ketorolac [Toradol] Med 05/21/19 22:17 Active 30 mg IV Q6H PRN LORazepam [Ativan] Med 05/21/19 22:17 Active 1 mg IV Q6H PRN Lactated Ringers [Ringers, Lactated] 1,000 ml Med 05/21/19 22:30 Active IV ASDIRECTED Levothyroxine [Synthroid] Med 05/22/19 06:00 Active 88 mcg PO ACBREAKFAST Metoprolol Tartrate [Lopressor] Med 05/21/19 22:29 Active 5 mg IVPUSH Q4H PRN Ondansetron [Zofran] Med 05/21/19 22:17 Active 4 mg IV Q6H PRN Pantoprazole [ProTONIX IV] Med 05/22/19 07:30 Active 40 mg IV Q12H Promethazine [Phenergan] 12.5 mg Med 05/21/19 22:17 Active Sodium Chloride 0.9% [Normal Saline] 50 ml IV Q6H Remove Patch Med 05/23/19 21:00 Active 1 ea TRDERM Q72H Sodium Chloride 0.9% [Saline Flush] Med 05/21/19 17:38 Active 10 ml FLUSH ASDIRECTED PRN Temazepam [Restoril] Med 05/21/19 22:17 Active 15 mg PO BEDTIME PRN amLODIPine [Norvasc] Med 05/22/19 09:00 Active 10 mg PO DAILY hydrALAZINE [Apresoline] Med 05/21/19 22:29 Active 20 mg IVPUSH Q4H PRN hydroCHLOROthiazide Med 05/22/19 09:00 Active 25 mg PO DAILY ED Antiemetic Medication Reflex [OM.PC] Stat Oth 05/21/19 17:39 Ordered Peripheral IV Insertion Adult [OM.PC] Stat Oth 05/21/19 17:38 Ordered Sequential Compression Device [OM.PC] Per Unit Routine Oth 05/21/19 22:18 Ordered Resuscitation Status Routine Resus Stat 05/21/19 22:17 Ordered Medication Orders Acetaminophen (Tylenol) 650 mg PO Q4H PRN PRN Reason: Pain (Mild 1-3)/fever Hydrocodone Bitart/Acetaminophen ([place] 325-5 Mg) 1 tab PO Q4H PRN PRN Reason: Pain (moderate 4-6) Albuterol/Ipratropium (Duoneb 3.0-0.5 Mg/3 Ml) 3 ml NEB Q4H PRN PRN Reason: Shortness Of Breath/wheezing Amlodipine Besylate (Norvasc) 10 mg PO DAILY [facility] Hydralazine HCl (Apresoline) 20 mg IVPUSH Q4H PRN PRN Reason: Hypertension Hydrochlorothiazide (Hydrochlorothiazide) 25 mg PO DAILY [facility] Hydromorphone HCl (Dilaudid) 0.25 mg IVPUSH Q2H PRN PRN Reason: Pain (severe 7-10) Lactated Ringer's (Ringers, Lactated) 1,000 mls @ 50 mls/hr IV ASDIRECTED [facility] Stop: 05/22/19 18:29 Last Admin: 05/22/19 04:00 Dose: 50 mls/hr Promethazine HCl 12.5 mg/ (Sodium Chloride) 50.5 mls @ 100 mls/hr IV Q6H PRN PRN Reason: Nausea/Vomiting Ketorolac Tromethamine (Toradol) 30 mg IV Q6H PRN PRN Reason: Pain (moderate 4-6) Levothyroxine Sodium (Synthroid) 88 mcg PO ACBREAKFAST [facility] Last Admin: 05/22/19 06:14 Dose: 88 mcg Lorazepam (Ativan) 1 mg IV Q6H PRN PRN Reason: Nausea/Vomiting Metoprolol Tartrate (Lopressor) 5 mg IVPUSH Q4H PRN PRN Reason: Tachycardia Miscellaneous Information (Remove Patch) 1 ea TRDERM Q72H [facility] Ondansetron HCl (Zofran) 4 mg IV Q6H PRN PRN Reason: Nausea/Vomiting Pantoprazole Sodium (Protonix Iv) 40 mg IV Q12H [facility] Sodium Chloride (Saline Flush) 10 ml FLUSH ASDIRECTED PRN PRN Reason: Keep Vein Open Last Admin: 05/21/19 19:54 Dose: 10 ml Temazepam (Restoril) 15 mg PO BEDTIME PRN PRN Reason: Sleep Last Admin: 05/22/19 02:56 Dose: 15 mg Assessment/Plan Comment:: I/P: Acute: H.Pylori infection -Reports weakness, confusion, crampy abdominal pain, nausea, vomiting -Positive H. Pylori -Start PPI BID; Clarithromycin 500 mg p.o. twice daily, and Flagyl 500 mg p.o. every 12 -Clear liquid diet for now-> Advance to full liquids -Antiemetics as ordered Hypokalemia -Potassium 2.3-->3.4 -Likely worsened by vomiting -Hx/o hypokalemia, is on home supplementation -10meq KCl given in ED along with 40meq PO -Supplement -Review home medications Hypoxia, resolved -Saturations of 75% noted in ED -CXR negative for acute findings -Denies SOB -Has not been on oxygen since here -Saturations in upper 90's on floor Chronic: HTN Bladder sling Migraines Depression Hypothyroidism Plan: Admit to medical floor on telemetry Other orders as indicated above Routine AM labs Home medications as ordered CM/SW consult Code status: Full code; PCP: Dr. Lazaro/Cheri Yo PA-C - Mortality Measure Prognosis:: Good
[2019-05-22] MEDS: Pantoprazole 40 MG Vial IV SCH ×2 (07:36→20:12)
[2019-05-22] MEDS: metroNIDAZOLE 500 MG Tab PO SCH ×2 (08:57→20:13)
[2019-05-22] MEDS: Hydrochlorothiazide 25 MG Tab PO SCH (08:57)
[2019-05-22] MEDS: amLODIPine 5 MG Tab PO SCH (08:58)
--- NOTE | 2019-05-22 10:17 | CT ---
Head CT Technique: Multiple axial sections through the brain were obtained. Intravenous contrast was not utilized. Comparison: Prior head CT study of 02/25/17. Findings: Ventricles along with basal cisterns and sulci over the convexities appear within normal limits for the patient's age. No abnormal parenchymal densities are seen. No evidence of intracranial hemorrhage. No midline shift or mass effect is seen. Bone window settings were reviewed. Visualized mastoid sinuses show nothing acute. Visualized paranasal sinuses show nothing acute. No acute calvarial abnormality is appreciated. Impression: 1. Nothing acute is appreciated on noncontrast head CT study. 2. No appreciable change is seen from previous head CT exam. Diagnostic code #1 This report was dictated in [place] Standard Time
[2019-05-22] MEDS ORDERED: Potassium Chloride 20 MEQ Tab.ER PO ONE (11:30)
[2019-05-23] MEDS: Temazepam 15 MG Cap PO PRN (02:36)
[2019-05-23] MEDS: Pantoprazole 40 MG Vial IV SCH (06:34)
[2019-05-23] MEDS: Levothyroxine 88 MCG Tab PO SCH (06:34)
[2019-05-23] MEDS: Hydrochlorothiazide 25 MG Tab PO SCH (08:57)
[2019-05-23] MEDS: metroNIDAZOLE 500 MG Tab PO SCH (08:57)
[2019-05-23] MEDS: amLODIPine 5 MG Tab PO SCH (09:00)
--- NOTE | 2019-05-23 09:47 | PCM.DCSUM1 ---
Discharge Summary - Hospital Course HPI Initial Comments: Shandra Lopez is a 49yo male presents to ED on 05/21/2019 complaining of shortness of breath, weakness, and confusion. States she has crampy abdominal pain nausea and vomiting as well. Symptoms started earlier in the day and have gradually worsened. Per the ED notes the patient was found hunched over garbage can by her daughter and was noted to be disorientated and confused, having trouble staying awake. Reports she does have a history of hypokalemia and had similar symptoms at that time, being hospitalized for 3 days. In the ED she reports diarrhea and palpitations. The ED temp is 36.8 Celsius. Pulse 118. Respirations 18. Blood pressure 150/ 90. Pulse ox 100%. Labs are obtained showing a WBC of 8.44. Hemoglobin 13.5. Hematocrit 37.9. She is normocytic. Blood sugar 337,000. Neutrophils are elevated at 83.4%. M is slightly low at 134. Potassium is very low at 2.3. Carbon oxide 25. Anion gap is 19.3. BUN is 11. Creatinine 0.8. EGFR greater than 60. Glucose is high at 196. Calcium 9.9. Magnesium is low at 1.7. Bilirubin 0.9. AST is 19, ALT 25, alkaline phosphatase 70. Albumin is 4.6. Lipase is 67. Urine hCG is negative. D-dimer 0.3. TSH is slightly high at 0.489. UA is negative however 1+ glucose, 3+ ketones, trace occult blood are seen. Ethyl alcohol is 0.00. Urine drug screen is negative. ABG is obtained in the left radial showing a pH of 7.46. PCO2 is 37.2. PO2 is 120. HCO3 is 25.8. Base excess is 2.5. O2 saturation is 99%. She was given a K rider of 10 mill equivalents IV. She was noted to have saturations around 75% in the ED. Chest x-ray was obtained showing nothing acute. CT the abdomen and pelvis is obtained showin. 2 x 1 cm low-density finding next the bowel within the left side of the pelvis. This most likely relates to the GI tract and could represent low density mass or small duplication cyst. Recommend nonemergent ultrasound to see if this can be visualized by that modality to allow for follow -up. In addition, ultrasound can be performed to make sure this does not represent a high placed ovary. 2. Several low-density findings within the gallbladder presumably representing cholesterol containing gallstones. 3. Other findings which are felt to be incidental. Nothing acute is appreciated CT study of the abdomen and pelvis. She subsequently [facility] with telemetry for hypo-kalemia and transient hypoxia. She carries a history of hypertension, bladder sling, migraines, depression, hypothyroidism. She was never a smoker. She sees Dr. Lazaro and Cheri Yo PA-C for primary care. Diagnosis: Stroke: No - Discharge Data Discharge Date: 05/23/19 (Admit date: 05/21/19) Discharge Disposition: Home, Self-Care 01 Condition: Good - Referral to Home Health Primary Care Physician: PCP None - Discharge Diagnosis/Problem(s) (1) H. pylori infection SNOMED Code(s): 100020839 ICD Code: A04.8 - OTHER SPECIFIED BACTERIAL INTESTINAL INFECTIONS Status: Acute Priority: High Current Visit: Yes (2) Hypomagnesemia SNOMED Code(s): 858559007 ICD Code: E83.42 - HYPOMAGNESEMIA Status: Resolved Priority: High Current Visit: Yes (3) Hypokalemia SNOMED Code(s): 43793915 ICD Code: E87.6 - HYPOKALEMIA Status: Resolved Priority: High Current Visit: Yes (4) Hypoxia SNOMED Code(s): 966806338 ICD Code: R09.02 - HYPOXEMIA Status: Resolved Priority: High Current Visit: Yes - Patient Summary/Data Consults: Consultations 05/21/19 22:17 Consult to Case Management/House Wirer Helper [CONS] Routine Labs Pending at D/C: RVP, urine potassium, urine chloride Recommended Follow-up Testing/Procedures: Follow-up with PCP within 5-7 days of discharge. Orders placed for re-check of potassium on 05/27/18 with results to patients PCP. Recommend follow-up with general surgery regarding gallstones. Recommend outpatient pelvic ultrasound regarding CT scan abnormalities. Hospital Course: Shandra is admitted to the floor with H. pylori and hypokalemia. She has a penicillin allergy so she was started on a PPI twice daily, 500 mg p.o. twice daily clarithromycin, and 500 mg p.o. every 12 hours Flagyl. Reports that these helped her abdominal pain. Potassium was supplemented and returned to normal. Patient reports that she has a chronic borderline low potassium and is on supplementation. Recommend primary care provider review patient's medications as hydrochlorothiazide may be driving down her potassium. Her home potassium supplement was continued at discharge. Urine osmolality was obtained and was 406 with a urine random sodium of 93, both of these within normal limits. Urine potassium and chloride were both still pending. She was reporting some diarrhea so C. difficile was checked but was negative. This was likely a side effect of oral CT contrast. She was noted to have a lactic episode in the ER so respiratory viral panel was obtained and was negative. CT was obtained and was negative. Abdominal CT scan was obtained and noted "1. 2.1 cm low-density finding next of bowel within the left side of the pelvis. This most likely relates to the GI tract and could represent low density mass or small duplication cyst. Recommend nonemergent ultrasound to see if this can be visualized by that modality to allow for follow-up. In addition, ultrasound can be performed to make sure this does not represent a high placed ovary. 2. Several low-density findings within the gallbladder presumably representing cholesterol containing gallstones. 3. Other findings which are felt to be incidental. Nothing acute is appreciated on CT study of the abdomen and pelvis. " Recommend patient have outpatient pelvic ultrasound as recommended by radiologist. Patient may also benefit from follow-up with a surgeon regarding her gallstones. At discharge patient was doing well reported feeling nearly back to normal. She was prescribed a 12-1/2-day course of twice daily PPI, twice daily clarithromycin, and twice daily Flagyl as above. This will be a total of 14 days of treatment. She was advised to follow-up with her primary care provider within 5 to 7 days of discharge. She was also advised to contact her primary care provider, walk-in clinic, or return to the emergency room should symptoms return or worsen. Orders were sent for patient to have potassium checked on 05/27/2019 with results of this to the patient's primary care provider. She was discharged today. - Patient Instructions Diet: Usual Diet as Tolerated Activity: As Tolerated Notify Provider of: Fever, Increased Pain, Nausea and/or Vomiting Other/Special Instructions: Follow-up with primary care provider within 5-7 days of discharge, sooner if needed. Blood draw scheduled for 1/13/19 to re- check your potassium. Recommend you discuss your medications, particularly your hydrochlorothiazide, and your chronic low potassium with your primary care provider. CT scan revealed a possible abnormality in your pelvis and we are not really sure what it is. Our radiologist is recommending an outpatient ultrasound of the area to help determine what it is. This can be arranged through your primary care provider. CT scan also showed several suspected gallstones in your gallbladder. Recommend you discuss this with your primary care provider as you may benefit from a surgical consult to discuss this further. Take all of your new medications as prescribed until out, even if you feel 100% better. Vomiting and diarrhea will deplete your potassium. Be aware of this and make sure to eat potassium containing foods when sick. Should symtpoms return or worsen, contact your primary care provider, a walk-in clinic , or return to the Emergency Department. - Discharge Plan *PRESCRIPTION DRUG MONITORING PROGRAM REVIEWED*: No *COPY OF PRESCRIPTION DRUG MONITORING REPORT IN PATIENT MONIQUE: No Prescriptions/Med Rec: Clarithromycin [Biaxin] 500 mg PO BID #25 tablet metroNIDAZOLE [Flagyl] 500 mg PO Q12H #25 tablet Omeprazole 20 mg PO BID #25 tablet. Home Medications: Home Meds Levothyroxine Sodium [Levoxyl] 88 mcg PO DAILY 02/25/17 [History] Lisinopril [Zestril] 20 mg PO BEDTIME 05/21/19 [History] Potassium Chloride 20 meq PO BID 05/21/19 [History] amLODIPine [Norvasc] 10 mg PO DAILY 05/21/19 [History] hydroCHLOROthiazide [Hydrochlorothiazide] 25 mg PO DAILY 05/21/19 [History] Clarithromycin [Biaxin] 500 mg PO BID #25 tablet 05/23/19 [Rx] Omeprazole 20 mg PO BID #25 tablet. 05/23/19 [Rx] metroNIDAZOLE [Flagyl] 500 mg PO Q12H #25 tablet 05/23/19 [Rx] Oxygen Therapy Mode: Room Air Patient Handouts: Helicobacter Pylori Infection, Hypokalemia, Sepsis, Adult, Clostridium Difficile Infection, Potassium Content of Foods, Hydrochlorothiazide , HCTZ capsules or tablets Referrals: Cheri Yo PA-C [Ordering Only Provider] - 05/30/19 2:00 pm (Please follow-up with XAVIER Hummel on May 30 at 2 pm. Follow-up with a doctor to have your potassium level rechecked, an ultrasound ordered to examine left side of the pelvis, and to have your Synthroid dose evaluated.) - Discharge Summary/Plan Comment DC Time >30 min.: Yes (45 mins ) - General Info Date of Service: 05/23/19 Admission Dx/Problem (Free Text: Admission Diagnosis/Problem Admission Diagnosis/Problem Hypokalemia Functional Status: Reports: Pain Controlled, Tolerating Diet, Ambulating, Urinating. Denies: New Symptoms - Review of Systems General: Reports: No Symptoms. Denies: Fever, Weakness, Fatigue, Malaise, Chills HEENT: Reports: No Symptoms. Denies: Headaches, Sore Throat Pulmonary: Reports: Cough (mild ). Denies: Shortness of Breath, Sputum, Wheezing Cardiovascular: Reports: No Symptoms. Denies: Chest Pain, Palpitations, Dyspnea on Exertion, Edema Gastrointestinal: Reports: Abdominal Pain (mild epigastric and RUQ. ). Denies: Constipation, Diarrhea, Nausea, Vomiting Genitourinary: Reports: No Symptoms. Denies: Pain Musculoskeletal: Reports: No Symptoms Skin: Reports: No Symptoms. Denies: Cyanosis Neurological: Reports: No Symptoms. Denies: Difficulty Walking, Gait Disturbance Psychiatric: Reports: No Symptoms - Patient Data Vitals - Most Recent: Last Vital Signs Temp 97.5 F 05/23/19 09:01 Pulse 67 05/23/19 09:01 Resp 12 05/23/19 09:01 BP 120/80 05/23/19 09:01 Pulse Ox 99 05/23/19 09:01 Weight - Most Recent: 187 lb 9.6 oz I&O - Last 24 hours: Intake & Output 05/22/19 05/23/19 05/23/19 22:59 06:59 14:59 Intake Total 1556 1350 Output Total 1900 1400 Balance -344 -50 Lab Results - Last 24 hrs: Laboratory Results - last 24 hr 05/22/19 05/23/19 05/23/19 Range/Units 15:13 04:35 04:35 WBC 6.05 (3.98-10.04) K/mm3 RBC 4.31 (3.98-5.22) M/mm3 Hgb 12.3 (11.2-15.7) gm/dl Hct 36.2 (34.1-44.9) % MCV 84.0 (79.4-94.8) fl MCH 28.5 (25.6-32.2) pg MCHC 34.0 (32.2-35.5) g/dl RDW Std Deviation 38.9 (36.4-46.3) fL Plt Count 317 (182-369) K/mm3 MPV 8.8 L (9.4-12.3) fl Neut % (Auto) 49.7 (34.0-71.1) % Lymph % (Auto) 39.8 (19.3-51.7) % [place] % (Auto) 8.4 (4.7-12.5) % Eos % (Auto) 1.5 (0.7-5.8) Baso % (Auto) 0.3 (0.1-1.2) % Neut # (Auto) 3.00 (1.56-6.13) K/mm3 Lymph # (Auto) 2.41 (1.18-3.74) K/mm3 [place] # (Auto) 0.51 H (0.24-0.36) K/mm3 Eos # (Auto) 0.09 (0.04-0.36) K/mm3 Baso # (Auto) 0.02 (0.01-0.08) K/mm3 Sodium 142 (136-145) mEq/L Potassium 3.9 (3.5-5.1) mEq/L Chloride 105 (98-107) mEq/L Carbon Dioxide 29 (21-32) mEq/L Anion Gap 11.9 (5-15) BUN 9 (7-18) mg/dL Creatinine 0.8 (0.55-1.02) mg/dL Est Cr Clr Drug Dosing 81.38 mL/min Estimated GFR (MDRD) > 60 (>60) mL/min BUN/Creatinine Ratio 11.3 L (14-18) Glucose 95 (74-106) mg/dL Calcium 8.2 L (8.5-10.1) mg/dL Magnesium 1.8 (1.8-2.4) mg/dl Total Bilirubin 0.4 (0.2-1.0) mg/dL AST 13 L (15-37) U/L ALT 23 (14-59) U/L Alkaline Phosphatase 60 (46-116) U/L Total Protein 6.6 (6.4-8.2) g/dl Albumin 3.5 (3.4-5.0) g/dl Globulin 3.1 gm/dL Albumin/Globulin Ratio 1.1 (1-2) C.difficile [id number] Presumptive negative C. difficile Tox (PCR) Negative Med Orders - Current: Current Medications Acetaminophen (Tylenol) 650 mg PO Q4H PRN PRN Reason: Pain (Mild 1-3)/fever Hydrocodone Bitart/Acetaminophen ([place] 325-5 Mg) 1 tab PO Q4H PRN PRN Reason: Pain (moderate 4-6) Albuterol/Ipratropium (Duoneb 3.0-0.5 Mg/3 Ml) 3 ml NEB Q4H PRN PRN Reason: Shortness Of Breath/wheezing Amlodipine Besylate (Norvasc) 10 mg PO DAILY [facility] Last Admin: 05/23/19 09:00 Dose: 10 mg Clarithromycin (Biaxin) 500 mg PO BID [facility] Last Admin: 05/23/19 08:57 Dose: 500 mg Hydralazine HCl (Apresoline) 20 mg IVPUSH Q4H PRN PRN Reason: Hypertension Hydrochlorothiazide (Hydrochlorothiazide) 25 mg PO DAILY [facility] Last Admin: 05/23/19 08:57 Dose: 25 mg Hydromorphone HCl (Dilaudid) 0.25 mg IVPUSH Q2H PRN PRN Reason: Pain (severe 7-10) Promethazine HCl 12.5 mg/ (Sodium Chloride) 50.5 mls @ 100 mls/hr IV Q6H PRN PRN Reason: Nausea/Vomiting Ketorolac Tromethamine (Toradol) 30 mg IV Q6H PRN PRN Reason: Pain (moderate 4-6) Last Admin: 05/22/19 11:36 Dose: 30 mg Levothyroxine Sodium (Synthroid) 88 mcg PO ACBREAKFAST [facility] Last Admin: 05/23/19 06:34 Dose: 88 mcg Lorazepam (Ativan) 1 mg IV Q6H PRN PRN Reason: Nausea/Vomiting Metoprolol Tartrate (Lopressor) 5 mg IVPUSH Q4H PRN PRN Reason: Tachycardia Metronidazole (Flagyl) 500 mg PO Q12H [facility] Last Admin: 05/23/19 08:57 Dose: 500 mg Miscellaneous Information (Remove Patch) 1 ea TRDERM Q72H [facility] Ondansetron HCl (Zofran) 4 mg IV Q6H PRN PRN Reason: Nausea/Vomiting Pantoprazole Sodium (Protonix Iv) 40 mg IV Q12H [facility] Last Admin: 05/23/19 06:34 Dose: 40 mg Sodium Chloride (Saline Flush) 10 ml FLUSH ASDIRECTED PRN PRN Reason: Keep Vein Open Last Admin: 05/21/19 19:54 Dose: 10 ml Temazepam (Restoril) 15 mg PO BEDTIME PRN PRN Reason: Sleep Last Admin: 05/23/19 02:36 Dose: 15 mg Discontinued Medications Diatrizoate Meglum/Diatrizoate Sod (Gastrografin 37%) 60 ml PO ONETIME ONE Stop: 05/21/19 17:47 Last Admin: 05/21/19 19:54 Dose: 60 ml Hydromorphone HCl (Dilaudid) 1 mg IVPUSH ONETIME ONE Stop: 05/21/19 17:42 Last Admin: 05/21/19 18:16 Dose: Not Given Sodium Chloride (Normal Saline) 1,000 mls @ 1,000 mls/hr IV .BOLUS STA Stop: 05/21/19 18:37 Last Admin: 05/21/19 17:59 Dose: 1,000 mls/hr Potassium Chloride 10 meq/ (Premix) 100 mls @ 100 mls/hr IV ASDIRECTED [facility] Last Admin: 05/21/19 18:54 Dose: 100 mls/hr Magnesium Sulfate/Dextrose 1 (gm/ Premix) 100 mls @ 100 mls/hr IV ONETIME ONE Stop: 05/21/19 20:00 Last Admin: 05/21/19 20:28 Dose: 100 mls/hr Lactated Ringer's (Ringers, Lactated) 1,000 mls @ 50 mls/hr IV ASDIRECTED [facility] Stop: 05/22/19 18:29 Last Admin: 05/22/19 04:00 Dose: 50 mls/hr Iopamidol (Isovue-300 (61%)) 100 ml IVPUSH ONETIME ONE Stop: 05/21/19 17:47 Last Admin: 05/21/19 19:54 Dose: 100 ml Ondansetron HCl (Zofran) 4 mg IVPUSH ONETIME ONE Stop: 05/21/19 17:39 Last Admin: 05/21/19 18:00 Dose: 4 mg Ondansetron HCl (Zofran) 4 mg IVPUSH ONETIME ONE Stop: 05/21/19 20:32 Last Admin: 05/21/19 20:39 Dose: 4 mg Pantoprazole Sodium (Protonix Iv) 40 mg IVPUSH BID ONEIL Potassium Chloride (Klor-Con M20) 40 meq PO ONETIME ONE Stop: 05/21/19 21:01 Last Admin: 05/21/19 21:29 Dose: 40 meq Potassium Chloride (Klor-Con M20) 40 meq PO ONETIME ONE Stop: 05/22/19 11:31 Last Admin: 05/22/19 13:15 Dose: 40 meq Scopolamine (Transderm-Scop) 1.5 mg TRDERM Q72H [facility] Stop: 05/21/19 22:26 Last Admin: 05/21/19 23:18 Dose: 1.5 mg - Exam Quality Assessment: Reports: DVT Prophylaxis General: Reports: Alert, Oriented, Cooperative, No Acute Distress HEENT: Reports: Pupils Equal, Pupils Reactive, EOMI, Mucous Membr. Moist/[place] Neck: Reports: Supple, Trachea Midline Lungs: Reports: Clear to Auscultation, Normal Respiratory Effort Cardiovascular: Reports: Regular Rate, Regular Rhythm GI/Abdominal Exam: Normal Bowel Sounds, Soft, No Organomegaly, No Distention, Tender (Mild epigastric >RUQ abdominal pain. ) (Female) Exam: Deferred Rectal (Female) Exam: Deferred Back Exam: Reports: Normal Inspection, Full Range of Motion Extremities: Normal Inspection, Normal Range of Motion, Non-Tender, No Pedal Edema, Normal Capillary Refill Skin: Reports: Warm, Dry, Intact Neurological: Reports: No New Focal Deficit Psy/Mental Status: Reports: Alert, Normal Affect, Normal Mood
[2019-05-23 11:47] VITALS: BP 118/78; PULSE 80
[2019-05-23 12:46] LABS: BORDETELLA PARAPERT IS1001 Not Detected (Not Detected)
== END 2019-05-23 12:33 | disposition home or self-care (01) ==
LOC: JD.ED 17:03 → JD.MS 21:55
PROVIDERS: ADMIT Internal Medicine; ATTEND Internal Medicine
DX: E87.6 Hypokalemia (principal); R09.02 Hypoxemia; A04.8 Other specified bacterial intestinal infections; E83.42 Hypomagnesemia; I10 Essential (primary) hypertension; G43.909 Migraine, unspecified, not intractable, without status migrainosus; F32.9 Major depressive disorder, single episode, unspecified; Z88.0 Allergy status to penicillin; Z88.1 Allergy status to other antibiotic agents; Z79.899 Other long term (current) drug therapy; Z96.0 Presence of urogenital implants
CPT/HCPCS: 36415; 36600; 70450; 71046; 74177; 80053; 80306; 80320; 81001; 82436; 82803; 83690; 83735; 83930; 83935; 84133; 84300; 84439; 84443; 84703; 85025; 85379; 86308; 86677; 87486; 87493; 87581; 87632; 87798; 87804; 96361; 96365; 96366; 96367; 96375; 96376; 99285; A9270; C9113; G0378; J1885; J2405; J3475; J3480; J7030; J7120; Q9963; Q9967; 99217; 99220; G0480